=== PATIENT | male | born 1995 ===

== ENCOUNTER 2021-03-02 09:45 | Emergency (ER) | payer MEDICAID, SELFPAY ==
--- NOTE | ~2021-03-02 | XR_ITS ---
EXAMINATION: Right hand and left foot CLINICAL INFORMATION: Punched refrigerator. Question foreign body glass within the left foot. COMPARISON: None TECHNIQUE: Three-view left foot and 3 view right hand FINDINGS: There is no evidence of acute fracture or dislocation of the right hand. Soft tissue swelling is noted about the dorsum of the metacarpals as well as about the fifth metacarpal phalangeal joint. Joint spaces are maintained. 3 views of the left foot do not demonstrate any evidence of acute fracture or dislocation. Joint spaces maintained. There is soft tissue swelling seen about the fifth metatarsophalangeal joint with no definite radiopaque foreign body identified. XR/XR foot LT 2V IMPRESSION: Soft tissue swelling about the right hand and left foot without acute fracture or dislocation or radiopaque foreign body.
--- NOTE | ~2021-03-02 | XR_ITS ---
EXAMINATION: Right hand and left foot CLINICAL INFORMATION: Punched refrigerator. Question foreign body glass within the left foot. COMPARISON: None TECHNIQUE: Three-view left foot and 3 view right hand FINDINGS: There is no evidence of acute fracture or dislocation of the right hand. Soft tissue swelling is noted about the dorsum of the metacarpals as well as about the fifth metacarpal phalangeal joint. Joint spaces are maintained. 3 views of the left foot do not demonstrate any evidence of acute fracture or dislocation. Joint spaces maintained. There is soft tissue swelling seen about the fifth metatarsophalangeal joint with no definite radiopaque foreign body identified. XR/XR hand RT 2V IMPRESSION: Soft tissue swelling about the right hand and left foot without acute fracture or dislocation or radiopaque foreign body.
[2021-03-02 10:21] VITALS: BP 141/57; PULSE 112; RESP 18; TEMP 36.8; O2SAT 97; BMI 31.9
--- NOTE | 2021-03-02 10:59 | ED_ITS ---
HPI - Extremity Problem General Chief complaint: Skin/Abscess/Foreign Body Stated complaint: lt ft lac, swollen rt hand Time Seen by Provider: 03/02/21 10:59 Source: patient Mode of arrival: ambulatory Limitations: no limitations History of Present Illness HPI Narrative: 25-year-old male with no known medical history presents to the emergency department with complaints of left foot pain and right hand pain X12 hours. Patient states last night his walking barefoot, he stepped on what he thinks is class, however he never visualized the glass, or tech any foreign bodies at the area. He states his cough has been bleeding since last night at midnight. He also states that he is having right hand pain status post punching a wall. He states it feels better now and he noticed it a little bit swollen. Patient is unsure of his tetanus status. Patient denies numbness, paresthesias, fevers, chills, nausea, vomiting, chest pain, shortness of breath, abdominal pain MD Complaint: extremity pain and extremity swelling Onset (ago): hour(s) (12) Pain Consistency: constant Location: left (foot) and right (hand ) Quality: constant Radiation: none Relieving factors: nothing Exacerbating factors: nothing Associated symptoms: denies other symptoms Related Data Previous Rx's Medication Instructions Recorded doxycycline hyclate 100 mg capsule 100 mg PO BID 10 Days #20 cap 03/02/21 Allergies Allergy/AdvReac Type Severity Reaction Status Date / Time SEASONAL ALLERGIES Allergy Unknown stuff Uncoded 03/02/21 10:21 nose/eyes irrtation Review of Systems Review of Systems: Constitutional : No Weight loss, No Fever, No Chills, No Fatigue, No Malaise ENT/Mouth : No sore throat, No Rhinorrhea Eyes: No Eye Pain, No Swelling, No Redness Cardiovascular : No Chest Pain, No SOB, No Dyspnea on Exertion, No Orthopnea, No Edema, No Palpitations Respiratory : No Cough, No Sputum, No Wheezing Gastrointestinal : No Nausea, No Vomiting, No Diarrhea, No Constipation, No abdominal Pain, No Hematochezia, No Melena Genitourinary : No Dysuria, No Urinary Frequency, No Hematuria, Musculoskeletal : + joint pain, No Myalgias, + Joint Swelling Skin : No Skin Lesions, No rash, + laceration Neuro : No Weakness, No Numbness, No Dizziness, No Headache All other systems reviewed and are negative PMFSH Past Medical History Attestation statement: The following information was validated with the patient. Source: old records reviewed and nursing notes reviewed Medical History (Updated 03/02/21 @ 11:13 by RAY Mcdonnell) Patient denies medical problems Social History Social History Advance Directives: No Advance Directives Information Provided: No Physical Exam Vital Signs: Vital Signs: Last Vital Signs Temp 98.3 F 03/02/21 10:21 Pulse 112 H 03/02/21 10:21 Resp 18 03/02/21 10:21 BP 141/57 H 03/02/21 10:21 Pulse Ox 97 03/02/21 10:21 Body Mass Index 31.9 Appearance: Alert.? Oriented X3.? No acute distress.? Head: Normocephalic, atraumatic, no step-offs or deformities Eyes: Pupils equal, round and reactive to light.? ENT: Pharynx normal.? Neck: Normal inspection.? Neck supple.? CVS: Normal heart rate and rhythm.? Pulses normal.? Respiratory: No respiratory distress.? Breath sounds normal.? Abdomen: Soft and nontender.? Skin: Skin warm and dry.? Normal skin color.? Normal skin turgor.?+small 2 cm linear laceration to the lateral aspect of the left foot. There is no evident foreign bodies to the laceration. I did a transillumination test at the [facility], and I was unable to visualize any foreign bodi Extremities: No lower extremity edema.? No calf ttp. 5/5 strength to bilateral upper and lower extremities. Dorsalis pedis posterior tibialis pulses 2+ equal and bilateral. Right hand with normal strength, no point tenderness to palpation, no overlying skin changes, slight swelling. Left hand normal Back: No midline tenderness, no C-spine tenderness, full range of motion, no CVA tenderness bilaterally Neuro: Oriented X 3.? No motor deficit.? No sensory deficit. Course Reevaluation(s) Reevaluation #1: Xrays negative. Laceration to left lateral aspect of foot closed with 4-0 nylon non dissolvable sutures. I placed 3 single interrupted sutures to the lateral aspect of the foot. No complications. Patient tolerated procedure well. Patient is safe for discharge home he is gone and his Boostrix shot here today. He has been advised to return to the emergency department in 7-10 days for suture removal return with any signs of infection such as fevers, chills, pain, swelling, discharge from the site of the laceration. Or to return to the emergency department with new or worsening symptoms. He is safe for discharge home with PCP follow-up. Time: 11:47 MDM - Extremity (Nontraumatic) MDM Narrative Medical decision making narrative: 1100 25-year-old male with no known medical history presents to the emergency department with complaints of laceration to the left lateral aspect of his foot status post stepping on a foreign body last night when he was walking around barefoot, and right-sided hand pain status post punching a wall last night. Patient is unsure of his tetanus status. Upon physical examination lungs are clear to auscultation bilaterally, S1-S2 appreciated free of murmurs. Abdomen soft nontender nondistended. Head normocephalic, atraumatic free of step-offs no deformities. Upper and lower extremities 5/5 strength. 2+ pulses equal bilateral. No focal neuro deficits. There is a small 2 cm linear laceration to the left lateral aspect of the foot. There is no evident foreign bodies to the laceration. I did a transillumination test at the bedside, and I was unable to visualize any foreign bodies. Dorsalis pedis posterior tibialis pulses 2+ equal and bilateral. Right hand with normal strength, no point tenderness to palpation, no overlying skin changes, slight swelling. Left hand normal. Plan at this time is to obtain plain films of the hand and foot and suture the laceraiton. Imaging Data Left foot and right hand x-ray: Attestation: I personally reviewed and interpreted this imaging study as follows: Radiologist's impression: XR/XR foot LT 2V IMPRESSION: Soft tissue swelling about the right hand and left foot without acute fracture or dislocation or radiopaque foreign body.? XR/XR hand RT 2V IMPRESSION: Soft tissue swelling about the right hand and left foot without acute fracture or dislocation or radiopaque foreign body.? Procedures Laceration Laceration 1: Site: lower extremity (left foot ) Side (If applicable): left Size (cm): 2 Description: linear Depth: simple, single layer Local Anesthetic: lidocaine 1% Amount of anesthesia used (mL): 3 Pre-repair: wound explored, irrigated extensively and deep structures intact Skin layer closed with: nylon Size (cm): 4-0 Number of sutures: 3 Technique: simple, interrupted Critical Care Time Critical Care Time Critical Care Time: No Discharge Plan Discharge Clinical Impression: Laceration of foot, left Patient Disposition: Home, Self-Care Instructions: Laceration (ED) Additional Instructions: Take your medications as prescribed. If you were prescribed antibiotics today, it is important that you take your medication to their entirety, do not skip any doses, do not finish them early. Follow-up with your primary care provider this week. Return to the emergency department, or get your sutures removed somewhere else in 7-10 days. Return to the emergency department with new or worsening symptoms. In case of emergency call 911 Prescriptions: New doxycycline hyclate 100 mg capsule 100 mg PO BID 10 Days Qty: 20 RF: 0 Referrals: Physician,None [Primary Care Provider] - 2 days Stand Alone Forms: Work/School Release
[2021-03-02] MEDS: Lidocaine HCl 1 % 20 ML VIAL 5 ML SUBCUT (11:26)
[2021-03-02] MEDS: Diphth,Pertus(ACell),Tet Adult 0.5 ML SYRINGE IM (11:27)
== END 2021-03-02 12:06 | disposition home or self-care (01) ==
PROVIDERS: Emergency Provider Emergency Medicine
DX: S91.312A Laceration without foreign body, left foot, initial encounter (principal); W26.9XXA Contact with unspecified sharp object(s), initial encounter; M79.672 Pain in left foot; M79.641 Pain in right hand; Y93.9 Activity, unspecified; Y92.9 Unspecified place or not applicable; Y99.9 Unspecified external cause status
CPT/HCPCS: 12001; 73120; 73620; 90471; 90715; 99283; 99284

== ENCOUNTER 2021-10-30 13:55 | Emergency (ER) | payer MEDICAID, SELFPAY ==
[2021-10-30] MEDS: EPINEPHrine 1 MG/ML VIAL 0.3 MG IM (14:04)
[2021-10-30] MEDS: methylPREDNISolone Sod Succ 125 MG/2 ML VIAL IVPUSH (14:05)
--- NOTE | 2021-10-30 14:05 | ED.ALLEREA ---
HPI - Allergic Reaction General Chief complaint: Allergic Reaction Stated complaint: Allergic reaction Time Seen by Provider: 10/30/21 13:58 Source: patient Mode of arrival: ambulatory Limitations: no limitations History of Present Illness HPI narrative: Patient presents emergency department for evaluation after a bee sting to his right 5th digit. Bee sting reportedly for 40 minutes prior to arrival to the emergency department, about 20 minutes after sting, he had significant stomach upset, he was profusely sweating, felt very cold, and felt as though his throat was constricting, 5 minutes later he reports taking a dose of Children's Benadryl as his father is also allergic to bees. Patient reports that he was stoma is seen years ago on his left hand, and he felt a slight throat closing sensation that self-resolved. Denies headache, vision changes, chest pain, palpitations, shortness of breath difficulty breathing nausea vomiting, abdominal pain. Denies any other known allergies. Related Data Previous Rx's Medication Instructions Recorded doxycycline hyclate 100 mg capsule 100 mg PO BID 10 days #20 caps 03/02/21 epinephrine 0.3 mg/0.3 mL 0.3 mg (0.3 mL) IM Q4H PRN 10/30/21 injection, auto-injector (EpiPen anaphylaxis #2 ea 2-Sameer) Allergies Allergy/AdvReac Type Severity Reaction Status Date / Time bee pollen [bee stings] Allergy Anaphylaxis Verified 10/30/21 14:23 SEASONAL ALLERGIES Allergy Unknown stuff Uncoded 03/02/21 10:21 nose/eyes irrtation Review of Systems Review of Systems: Constitutional : No Fever, No Chills ENT/Mouth : positive oral swelling, No Hoarseness, No Swallowing Difficulty Eyes: No Eye Pain, No Swelling, positive Redness Cardiovascular : No Chest Pain, No SOB Respiratory : No Cough, No Sputum, No Wheezing, No Smoke Exposure, No Dyspnea Gastrointestinal : No Nausea, No Vomiting, positive Diarrhea, No abdominal Pain Genitourinary : No Dysuria, No Urinary Frequency, No Hematuria Musculoskeletal : No joint pain, No Myalgias, No Joint Swelling Skin : No Skin Lesions, no rash Neuro : No Weakness, No Numbness, No Headache Psych : No Anxiety/Panic, No Depression Heme/Lymph: No Bruising, No Lymphadenopathy Endocrine : No Polyuria, No Polydipsia Yes all other systems are reviewed and are negative [facility] Past Medical History Attestation statement: The following information was validated with the patient. Source: old records reviewed Medical History Patient denies medical problems Social History Social History Advance Directives: No Advance Directives Information Provided: Yes Physical Exam ED Vital Signs: Vital Signs - 24 hr 10/30/21 14:22 10/30/21 15:19 Temperature 97.6 F Pulse Rate 92 100 Respiratory Rate 20 18 Blood Pressure 132/68 125/68 Pulse Oximetry 94 99 Oxygen Delivery Method Room Air Nasal Cannula Oxygen Flow Rate 2 BMI result Body Mass Index 28.1 Vital signs have been reviewed as normal and appeared to be correct. Blood pressure normal.? Heart rate normal.? Respiration rate normal. Temperature normal.? Oxygen saturation normal. Appearance: Alert.?Oriented to person, place and time. No acute distress.?Normal affect. Eyes: Pupils equal, round and reactive to light.? Sclera injected, mild orbital erythema, no swelling ENT: Pharynx mildly erythematous, no pharyngeal edema, no adenopathy. No swelling of the lips?? Neck: Normal inspection.? Neck supple.?? CVS: Heart sounds normal. Normal heart rate and rhythm.? Pulses normal.?? Respiratory: No respiratory distress.? Lung sounds clear to auscultation bilaterally?? Abdomen: Soft and non-tender. Normoactive bowel sounds. ? Skin: Skin warm and moist.? Skin appears slightly pale.? Extremities: No lower extremity edema.? Neuro: Moves all extremities spontaneously. Sensation intact bilaterally. CN II-XII intact. No focal neuro deficits. Ambulates with normal steady gait. Course Course Course Narrative: Patient is a 25-year-old male with no significant past medical history presents emergency department for evaluation after the bee sting with allergic reaction. Patient brought right from triage Assessment emergency department. Patient placed on supplemental oxygen, will receive epinephrine 0.3 mg IM, normal saline 1 L IV, Benadryl 25 mg IV, famotidine 20 mg IV, Solu-Medrol 125 mg IV. Patient will need to be continuously monitored in the emergency department. Disposition pending results. Reevaluation(s) Reevaluation #1: Discussed with patient epinephrine autoinjector, avoidance of allergen, indications for use, appropriate way to administer, signs/symptoms of allergic reaction, and immediate presentation to the emergency department after administration of epinephrine. Patient provided with a prescription for epinephrine autoinjector. Patient feels much improved at this time. Has been to our since he received medications. Lung sounds are clear bilaterally, respiratory effort is normal. No angioedema, no pharyngeal edema, no stomach upset no rash/ hives. Discussed worrisome signs and symptoms that would need to return back to the emergency department for. Advised outpatient follow up with primary care provider as needed. Time: 16:09 [facility] - Allergic Reaction Medical Records Attestation: I reviewed the patient's medical records. Discharge Plan Discharge Clinical Impression: Allergic reaction Patient Disposition: Home, Self-Care Instructions: Epinephrine (By injection), General Allergic Reaction (ED) Additional Instructions: You were evaluated in the emergency department for an allergic reaction after being stung by a bee earlier today. You were monitored in the emergency department, and discharged home after receiving medications and once you were feeling well. You have been given a new prescription for an EpiPen, discussed appropriate usage of this, indications for its usage, and presenting to emergency department for evaluation after eating to use this medication. Please follow-up with your primary care provider as needed. Feel free to return to the emergency department at any time for any new or worsening symptoms or concerns. Prescriptions: New epinephrine [EpiPen 2-Sameer] 0.3 mg/0.3 mL auto-injector 0.3 mg IM Q4H PRN (Reason: anaphylaxis) Qty: 2 0RF No Action doxycycline hyclate 100 mg capsule 100 mg PO BID 10 Days Qty: 20 0RF Interventions: ED Discharge Assessment Last Done: 10/30/21 16:22 Discharge Date/Time: 10/30/21 16:26
[2021-10-30] MEDS: diphenhydrAMINE HCL 50 MG/ML VIAL 25 MG IVPUSH (14:06)
[2021-10-30] MEDS: 0.9 % Sodium Chloride 1,000 ML 999 ML IV (14:06)
[2021-10-30] MEDS: Famotidine/PF 20 MG/2 ML VIAL IVPUSH (14:06)
[2021-10-30 14:22] VITALS: BP 132/68; PULSE 92; RESP 20; TEMP 36.4; O2SAT 94; BMI 28.1
[2021-10-30 15:19] VITALS: BP 125/68; PULSE 100; RESP 18; O2SAT 99
== END 2021-10-30 16:26 | disposition home or self-care (01) ==
PROVIDERS: Emergency Provider Emergency Medicine
DX: T63.441A Toxic effect of venom of bees, accidental (unintentional), initial encounter (principal); R22.0 Localized swelling, mass and lump, head; R10.9 Unspecified abdominal pain; R68.83 Chills (without fever); Y92.9 Unspecified place or not applicable
CPT/HCPCS: 96361; 96372; 96374; 96375; 99283; 99284; J0171; J1200; J2930

== ENCOUNTER 2022-03-08 12:58 | Emergency (ER) | payer MEDICAID, SELFPAY ==
--- NOTE | 2022-03-08 14:00 | ED_ITS ---
HPI - Skin/Abscess/Foreign Bdy General Chief complaint: Eye Problems <Sally Goncalves CNP - Last Filed: 03/08/22 14:08> Stated complaint: laceration above eye <Sally Goncalves CNP - Last Filed: 03/08/22 14:08> Time Seen by Provider: 03/08/22 14:33 <Sally Goncalves CNP - Last Filed: 03/08/22 14:08> Source: patient <Brenna Ibarra NP - Last Filed: 03/08/22 17:24> Mode of arrival: ambulatory <Brenna Ibarra NP - Last Filed: 03/08/22 17:24> Limitations: no limitations <Brenna Ibarra NP - Last Filed: 03/08/22 17:24> History of Present Illness HPI narrative: Kendall is a 26 yo male with no PMHx who presents to the emergency depar tment with a CC of left eye pain and irritation that started yesterday. He says that a few years ago, he received an initial injury in the left eye from a spark that flew into his eye from cleaning a lawnmower blade. He says it eventually healed and he never got it checked out. He then scratched his left eye a few months ago and says he had severe eye pain and couldn't open his eye at the time,but did not seek treatment, and it healed on its own. The pain in his left eye started again yesterday, and he denies any injury or new trauma to the site. It is extremely painful to open the eye and he thinks it is swollen. He has not tried anything to help with the pain and has not applied any OTC eye drops. He also notes that he has a decrease in vision in his left eye and is concerned that the pain appears to have come on very randomly. He denies abnormal discharge, blood, or itchiness. <Brenna Ibarra NP - Last Filed: 03/08/22 17:24> Severity: severe <KEISHA Jack Last Filed: 03/08/22 17:24> Severity scale (1-10): 10 <Brenna Ibarra NP - Last Filed: 03/08/22 17:24> Quality: sharp <Brenna Ibarra NP - Last Filed: 03/08/22 17:24> Pain Consistency: constant <Brenna Ibarra NP - Last Filed: 03/08/22 17:24> Relieving factors: other (keeping eye closed) <Brenna Ibarra NP - Last Filed: 03/08/22 17:24> Exacerbating factors: movement <Brenna Ibarra NP - Last Filed: 03/08/22 17:24> Context: none <Brenna Ibarra NP - Last Filed: 03/08/22 17:24> Associated symptoms: denies other symptoms <Brenna Ibarra NP - Last Filed: 03/08/22 17:24> Treatments prior to arrival: none <Brenna Ibarra NP - Last Filed: 03/08/22 17:24> Related Data Home medications: Previous Rx's Medication Instructions Recorded doxycycline hyclate 100 mg capsule 100 mg PO BID 10 days #20 caps 03/02/21 epinephrine 0.3 mg/0.3 mL 0.3 mg (0.3 mL) IM Q4H PRN 10/30/21 injection, auto-injector (EpiPen anaphylaxis #2 ea 2-Sameer) erythromycin 5 mg/gram (0.5 %) eye 1 appl ophthalmic (eye) BID #3.5 03/08/22 ointment grams ibuprofen 600 mg tablet 600 mg PO Q6H PRN pain #30 tabs 03/08/22 <Sally Goncalves CNP - Last Filed: 03/08/22 14:08> Allergies/Adverse reactions: Allergies Allergy/AdvReac Type Severity Reaction Status Date / Time bee pollen [bee stings] Allergy Anaphylaxis Verified 10/30/21 14:23 SEASONAL ALLERGIES Allergy Unknown stuff Uncoded 03/02/21 10:21 nose/eyes irrtation <Sally Goncalves CNP - Last Filed: 03/08/22 14:08> Review of Systems Review of Systems: Yes all other systems are reviewed and are negative <Brenna Ibarra NP - Last Filed: 03/08/22 17:24> Constitutional: Constitutional: Reports no additional constitutional complaints, Denies body ache(s), Denies chills, Denies fever(s), Denies heada sherry(s) and Denies weakness <Brenna Ibarra NP - Last Filed: 03/08/22 17:24> Eyes: Eyes: Reports change in vision (left eye), Denies eye discharge, Reports irritation, Reports eye pain, Denies requires corrective lenses and Reports photophobia <Brenna Ibarra NP - Last Filed: 03/08/22 17:24> ENT: Reports system reviewed and no additional complaints, except as documented, Denies dizziness, Denies headache(s), Denies nasal congestion, Denies nasal discharge and Denies neck pain <Brenna Ibarra NP - Last Filed: 03/08/22 17:24> Cardiovascular: Cardiovascular: Reports no additional cardiovascular complaints, Denies chest pain, Denies leg edema and Denies dyspnea <Brenna Ibarra NP - Last Filed: 03/08/22 17:24> Respiratory: Respiratory: Reports no additional respiratory complaints, Denies cough and Denies dyspnea <Brenna Ibarra NP - Last Filed: 03/08/22 17:24> Gastrointestinal: Gastrointestinal: Reports no additional gastrointestinal complaints, Denies abdominal pain, Denies diarrhea, Denies nausea and Denies vomiting <Brenna Ibarra NP - Last Filed: 03/08/22 17:24> Genitourinary: Genitourinary: Denies urinary incontinence <Brenna Ibarra NP - Last Filed: 03/08/22 17:24> Musculoskeletal: Musculoskeletal: Reports no additional musculoskeletal complaints, Denies back pain, Denies arthralgias, Denies joint swelling, Denies neck pain, Denies numbness and Denies tingling <Brenna Ibarra NP - Last Filed: 03/08/22 17:24> Integumentary/Breasts: Skin/Breast: Reports system reviewed and no additional complaints, except as docu and Denies rash <Brenna Ibarra NP - Last Filed: 03/08/22 17:24> Neurologic: Reports system reviewed and no additional complaints, except as documented, Denies Abnormal speech present, Denies dizziness, Denies headache(s), Denies numbness, Denies tingling and Denies weakness <Brenna Ibarra NP - Last Filed: 03/08/22 17:24> [facility] Past Medical History Attestation statement: The following information was validated with the patient. <Brenna Ibarra NP - Last Filed: 03/08/22 17:24> [facility] Narrative: PMHx: none SHx:none <Brenna Ibarra NP - Last Filed: 03/08/22 17:24> Source: old records reviewed and nursing notes reviewed <Brenna Ibarra NP - Last Filed: 03/08/22 17:24> Medical History: Medical History Patient denies medical problems <Sally Goncalves CNP - Last Filed: 03/08/22 14:08> Social History Social History: Social History Advance Directives: No Advance Directives Information Provided: Yes <Sally Goncalves CNP - Last Filed: 03/08/22 14:08> Physical Exam Vital Signs: Vital Signs: Last Vital Signs Temp 97.4 F 03/08/22 14:02 Pulse 95 03/08/22 14:02 Resp 20 03/08/22 14:02 BP 142/83 H 03/08/22 14:02 Pulse Ox 96 03/08/22 14:02 BMI result Body Mass Index 36.0 <Sally Goncalves CNP - Last Filed: 03/08/22 14:08> Vital Signs: Last Vital Signs Temp 97.4 F 03/08/22 14:02 Pulse 95 03/08/22 14:02 Resp 20 03/08/22 14:02 BP 142/83 H 03/08/22 14:02 Pulse Ox 96 03/08/22 14:02 BMI result Body Mass Index 36.0 <Brenna Ibarra NP - Last Filed: 03/08/22 17:24> Const: General: cooperative, healthy appearing, comfortable and no acute distress <Brenna Ibarra NP - Last Filed: 03/08/22 17:24> Orientation/consciousness: patient oriented x3 <Brenna Ibarra NP - Last Filed: 03/08/22 17:24> Limitations: no limitations <Brenna Ibarra NP - Last Filed: 03/08/22 17:24> HEENT: Head: Yes normal to inspection <Brenna Ibarra NP - Last Filed: 03/08/22 17:24> Ears: hearing grossly normal bilaterally and TM's normal bilaterally <Brenna Ibarra NP - Last Filed: 03/08/22 17:24> General nose exam: Normal external nose present <Brenna Ibarra NP - Last Filed: 03/08/22 17:24> Face and sinus: Yes normal facial exam <Brenna Ibarra NP - Last Filed: 03/08/22 17:24> Mouth: Normal oral and palatal mucosa present <Brenna Ibarra NP - Last Fi led: 03/08/22 17:24> Throat: Yes posterior oropharynx normal, Yes tonsils normal and Yes uvula midline <Brenna Ibarra NP - Last Filed: 03/08/22 17:24> Eyes: Other: IOP right 17 IOP left 12 See visual acuity documented by nursing <Brenna Ibarra NP - Last Filed: 03/08/22 17:24> General: appearance normal, both eyes and all related structures <Brenna Ibarra NP - Last Filed: 03/08/22 17:24> Alignment and Position: alignment normal <Brenna Ibarra NP - Last Filed: 03/08/22 17:24> Periorbital: periorbital findings normal <Brenna Ibarra NP - Last Filed: 03/08/22 17:24> Eyelids: Yes eyelids normal <Brenna Ibarra NP - Last Filed: 03/08/22 17:24> Conjunctivae: conjunctival abnormal left conjunctival injection diffuse <Brenna Ibarra NP - Last Filed: 03/08/22 17:24> Sclerae: scleral abnormal left (+swelling ) scleral injection diffuse <Brenna Ibarra NP - Last Filed: 03/08/22 17:24> Corneas: corneas abnormal (At the 5 o clock position there a circular abrasion with no FB) and fluorescein used <Brenna Ibarra NP - Last Filed: 03/08/22 17:24> Pupils: Equal, round and reactive pupils present <Brenna Ibarra PIN FEATHER MACHINE OPERATOR - Last Filed: 03/08/22 17:24> EOM: EOMs intact bilaterally <Brenna Ibarra PIN FEATHER MACHINE OPERATOR - Last Filed: 03/08/22 17:24> Direct Ophthalmoscopy: normal light reflex and photophobia <Brenna Ibarra NP - Last Filed: 03/08/22 17:24> Neck: Neck: Yes normal visual inspection <Brenna Ibarra NP - Last Andrea ed: 03/08/22 17:24> Chest: Chest palpation & inspection: normal inspection of the chest <Brenna Ibarra NP - Last Filed: 03/08/22 17:24> Resp: Effort & Inspection: normal respiratory effort <Brenna Ibarra PIN FEATHER MACHINE OPERATOR - Last Filed: 03/08/22 17:24> Auscultation: clear to auscultation bilaterally <Brenna Ibarra NP - Last Filed: 03/08/22 17:24> Cardio: Rate: regular rate <Brenna Ibarra NP - Last Filed: 03/08/22 17:24> Rhythm: regular rhythm <Brenna Ibarra NP - Last Filed: 03/08/22 17:24> Peripheral pulses: Peripheral pulses 2+ throughout <Brenna Ibarra PIN FEATHER MACHINE OPERATOR - Last Filed: 03/08/22 17:24> GI: Inspection: Yes normal to inspection <Brenna Ibarra NP - Last Filed: 03/08/22 17:24> Palpation (GI): Soft to palpation and nontender <Brenna Ibarra PIN FEATHER MACHINE OPERATOR - Last Filed: 03/08/22 17:24> Auscultation: normal bowel sounds <Brenna Ibarra NP - Last Filed: 03/08/22 17:24> Back/Spine/Pelvis: Thoracic/Lumbar Spine: thoracic and lumbar spine normal to inspection <Brenna Ibarra PIN FEATHER MACHINE OPERATOR - Last Filed: 03/08/22 17:24> Skin: General skin exam: no rashes or lesions noted <Brenna Ibarra PIN FEATHER MACHINE OPERATOR - Last Filed: 03/08/22 17:24> Neuro: General: patient oriented x3, no focal motor deficits and normal sensation to monofilament <Brenna Ibarra PIN FEATHER MACHINE OPERATOR - Last Filed: 03/08/22 17:24> Cranial nerves: Yes Equal, round and reactive pupils present <Brenna Ibarra PIN FEATHER MACHINE OPERATOR - Last Filed: 03/08/22 17:24> Cognition (Neuro): normal cognition <Brenna Ibarra PIN FEATHER MACHINE OPERATOR - Last Filed: 03/08/22 17:24> Speech: No Abnormal speech present <Brenna Ibarra PIN FEATHER MACHINE OPERATOR - Last Filed: 03/08/22 17:24> Gait exam (Neuro): Normal gait present <Brenna Ibarra NP - Last Filed: 03/08/22 17:24> Motor exam (neuro): 5/5 motor strength present throughout <Brenna Ibarra PIN FEATHER MACHINE OPERATOR - Last Filed: 03/08/22 17:24> Extrem: General: Yes normal to inspection <Brenna Ibarra NP - Last File d: 03/08/22 17:24> Course Course Course Narrative: RME: Patient is a 26-year-old male presents emergency department for evaluation of left eye pain, reporting concern for foreign body versus abrasion. States a few months ago, scratched the eye accidentally with finger, wrapped it and sought no evaluation. 2 days ago he reports awaking with eye feeling irriated, scratchy throughout the day without any known injury or foreign body. Pain worsening, reporting blurry vision. PE: Sclera injected, tearing, no visible foreign body. EOMi, however pain noted most with upward gaze Plan: Will need visual acuity, fluorescein examination, and IOP. <Sally Goncalves, TOBACCO BALER - Last Filed: 03/08/22 14:08> RME: Patient is a 26-year-old male presents emergency department for evaluation of left eye pain, reporting concern for foreign body versus abrasion. States a few months ago, scratched the eye accidentally with finger, wrapped it and sought no evaluation. 2 days ago he reports awaking with eye feeling irritated, scratchy throughout the day without any known injury or foreign body. Pain worsening, reporting blurry vision. PE: Sclera injected, tearing, no visible foreign body. EOMi, however pain noted most with upward gaze. Woodlamp with flourocsein performed, corneal abrasion noted. NO FB. Pressures normal Plan: given topical antibiotic, recommend f/u with ophthalmology <Brenna Ibarra NP - Last Filed: 03/08/22 17:24> Medications Administered Discontinued Medications Generic Name Dose Route Start Last Admin Trade Name Freq PRN Reason Stop Dose Admin Fluorescein Sodium 1 strip 03/08/22 14:40 03/08/22 16:28 Fluorescein Sodium Strip EYE-BOTH 03/08/22 14:41 1 strip ONCE ONE Administration Tetracaine HCl 1 drop 03/08/22 14:40 03/08/22 16:28 Tetracaine Hcl/Pf 0.5% Oph Mary 4 Ml Drops EYE-BOTH 03/08/22 14:41 1 drop ONCE ONE Administration <Sally Goncalves, RYLAN - Last Filed: 03/08/22 14:08> Medications Administered Discontinued Medications Generic Name Dose Route Start Last Admin Trade Name Freq PRN Reason Stop Dose Admin Fluorescein Sodium 1 strip 03/08/22 14:40 03/08/22 16:28 Fluorescein Sodium Strip EYE-BOTH 03/08/22 14:41 1 strip ONCE ONE Administration Tetracaine HCl 1 drop 03/08/22 14:40 03/08/22 16:28 Tetracaine Hcl/Pf 0.5% Oph Mary 4 Ml Drops EYE-BOTH 03/08/22 14:41 1 drop ONCE ONE Administration <Brenna Ibarra NP - Last Filed: 03/08/22 17:24> MDM - Skin/Abscess/Foreign Bdy MDM Narrative Medical decision making narrative: Based on PE with wood's lamp and flourescien stain, corneal abrasion noted on left eye. Provided topical antibiotic and recommended f/u with opthamolagist. Considered acute angle glaucoma, corneal FB, subconjunctival hemorrhage, conjunctivitis, optic neuritis, orbital cellulitis, globe rupture <Brenna Ibarra NP - Last Filed: 03/08/22 17:24> Medical Records Attestation: I reviewed the patient's medical records. <Brenna Ibarra NP - Last Filed: 03/08/22 17:24> Lab Data Attestation: I reviewed the patient's lab results. <Brenna Ibarra NP - Last Filed: 03/08/22 17:24> Discharge Plan Discharge Clinical Impression: Corneal abrasion <Sally Goncalves CNP - Last Filed: 03/08/22 14:08> Patient Disposition: Home, Self-Care <Sally Goncalves CNP - Last Filed: 03/08/22 14:08> Instructions: Corneal Abrasion (ED) <Sally Goncalves CNP - Last Filed: 03/08/22 14:08> Additional Instructions: cool compresses motrin or tylenol for pain as needed <Sally Goncalves CNP - Last Filed: 03/08/22 14:08> Prescriptions: New erythromycin 5 mg/gram (0.5 %) ointment 1 appl ophthalmic (eye) BID Qty: 3.5 0RF ibuprofen 600 mg tablet 600 mg PO Q6H PRN (Reason: pain) Qty: 30 0RF No Action doxycycline hyclate 100 mg capsule 100 mg PO BID 10 Days Qty: 20 0RF epinephrine [EpiPen 2-Sameer] 0.3 mg/0.3 mL auto-injector 0.3 mg IM Q4H PRN (Reason: anaphylaxis) Qty: 2 0RF <Sally Goncalves CNP - Last Filed: 03/08/22 14:08> Referrals: Gulshan Jean Baptiste [Physician] - 1 week <Sally Goncalves CNP - Last Filed: 03/08/22 14:08> Interventions: ED Discharge Assessment Last Done: 03/08/22 16:28 <Sally Goncalves CNP - Last Filed: 03/08/22 14:08> Discharge Date/Time: 03/08/22 16:29 <Sally Goncalves CNP - Last Filed: 03/08/22 14:08>
[2022-03-08 14:02] VITALS: BP 142/83; PULSE 95; RESP 20; TEMP 36.3; O2SAT 96; BMI 36.0
[2022-03-08] MEDS: Tetracaine HCl/PF 0.5% Oph Sol 4 ML DROPS 1 DROP EYE-BOTH (16:28)
[2022-03-08] MEDS: Fluorescein Sodium STRIP 1 STRIP EYE-BOTH (16:28)
== END 2022-03-08 16:29 | disposition home or self-care (01) ==
PROVIDERS: Emergency Provider Emergency Medicine Emergency Medical Services
DX: S05.02XA Injury of conjunctiva and corneal abrasion without foreign body, left eye, initial encounter (principal); X58.XXXA Exposure to other specified factors, initial encounter; Y93.89 Activity, other specified; Y92.9 Unspecified place or not applicable; Y99.9 Unspecified external cause status
CPT/HCPCS: 99282; 99283

== ENCOUNTER 2022-04-27 17:35 | Emergency (ER) | payer MEDICAID, SELFPAY ==
[2022-04-27 17:39] VITALS: BP 123/78; PULSE 70; RESP 18; TEMP 36.3; O2SAT 96; BMI 36.5
--- NOTE | 2022-04-27 17:56 | ED.GENADULT ---
HPI - General Adult General Chief complaint: General Medical Stated complaint: object in eye? Time Seen by Provider: 04/27/22 17:55 Source: patient Mode of arrival: ambulatory Limitations: no limitations History of Present Illness HPI narrative: Patient is a 26 year old assigned male at with no reported medical history presenting to the emergency department today with left eye pain. Patient states that 3 hours ago he began to have left eye pain that would not got away. Patient states that something similar happened in February but he didn't follow up with an refund specialist. Patient states that this has actually been intermittent since 2016. Patient denies any dizziness, lightheadedness, abdominal pain, nausea, vomiting, fever, chills, blurry vision, double vision, loss of vision, chest pain, difficulty breathing, shortness of breath, back pain, night sweats, pain with urination, increased urinary frequency, increased urinary urgency, blood in his urine or stool, syncope or a near syncopal episode, recent trauma or falls, bowel incontinence, bladder incontinence, bowel retention, bladder retention, or any other complaints at this time. Onset (ago): hour(s) Location: eyes (left) Radiation: non-radiation Severity: mild Severity scale (1-10): 3 Quality: aching Pain Consistency: constant Relieving factors: none Exacerbating factors: none Associated symptoms: denies other symptoms Treatments prior to arrival: none Related Data Previous Rx's Medication Instructions Recorded doxycycline hyclate 100 mg capsule 100 mg PO BID 10 days #20 caps 03/02/21 epinephrine 0.3 mg/0.3 mL 0.3 mg (0.3 mL) IM Q4H PRN 10/30/21 injection, auto-injector (EpiPen anaphylaxis #2 ea 2-Sameer) erythromycin 5 mg/gram (0.5 %) eye 1 appl ophthalmic (eye) BID #3.5 03/08/22 ointment grams ibuprofen 600 mg tablet 600 mg PO Q6H PRN pain #30 tabs 03/08/22 erythromycin 5 mg/gram (0.5 %) eye 0.5 inch ophthalmic (eye) Q4H #3.5 04/27/22 ointment grams Allergies Allergy/AdvReac Type Severity Reaction Status Date / Time bee pollen [bee stings] Allergy Anaphylaxis Verified 10/30/21 14:23 SEASONAL ALLERGIES Allergy Unknown stuff Uncoded 03/02/21 10:21 nose/eyes irrtation Review of Systems Constitutional: Constitutional: Reports no additional constitutional complaints, Denies chills, Denies fever(s) and Denies night sweats Eyes: Eyes: Reports no additional eye complaints, Denies blurry vision, Denies change in vision, Denies diplopia, Denies eye discharge, Denies loss of vision and Reports eye pain (left) ENT: Denies dizziness Cardiovascular: Cardiovascular: Reports no additional cardiovascular complaints, Denies chest pain, Denies lightheadedness, Denies Loss of Consciousness and Denies dyspnea Respiratory: Respiratory: Reports no additional respiratory complaints and Denies dyspnea Gastrointestinal: Gastrointestinal: Reports no additional gastrointestinal complaints, Denies abdominal pain, Denies melena, Denies hematochezia, Denies change in bowel habits and Denies change in stool character Genitourinary: Genitourinary: Reports no additional male genitourinary complaints, Denies hematuria, Denies oliguria, Denies difficulty urinating, Denies dysuria, Denies urinary frequency, Denies urinary hesitancy, Denies urinary incontinence and Denies urinary urgency Musculoskeletal: Musculoskeletal: Reports no additional musculoskeletal complaints, Denies numbness and Denies tingling Neurologic: Denies dizziness, Denies loss of vision, Denies numbness and Denies tingling Psychiatric: Psychiatric: Reports no additional psychiatric complaints Endocrine: Endocrine: Reports no additional endocrine complaints Hematologic/Lymphatic: Hematologic/Lymphatic: Reports no additional hematologic/lymphatic complaints Allergic/Immunologic: Allergic/Immunologic: Reports no additional allergic/immunologic complaints PMFSH Past Medical History Attestation statement: The following information was validated with the patient. Source: old records reviewed and nursing notes reviewed Medical History Patient denies medical problems Social History Social History Advance Directives: No Advance Directives Information Provided: No Physical Exam ED Vital Signs: Vital Signs - 24 hr 04/27/22 17:39 Temperature 97.3 F Pulse Rate 70 Respiratory Rate 18 Blood Pressure 123/78 Pulse Oximetry 96 Oxygen Delivery Method Room Air BMI result Body Mass Index 36.5 Const General: cooperative, no acute distress, alert and awake Nutritional Appearance: well nourished Orientation/consciousness: patient oriented x3 Limitations: no limitations HENMT Head: Yes normal to inspection and Yes atraumatic Ears: hearing grossly normal bilaterally and external ears normal General nose exam: Normal external nose present, no nasal discharge noted and no epistaxis Face and sinus: Yes normal facial exam, No abrasion and No laceration Mouth: Normal oral and palatal mucosa present, no drooling and no muffled voice Eyes General: appearance normal, both eyes and all related structures Periorbital: periorbital findings normal Eyelids: Yes other (minimal erythema to the left top lid) Conjunctivae: conjunctivae normal Corneas: corneas abnormal on the left abrasion Pupils: Equal, round and reactive pupils present EOM: EOMs intact bilaterally Neck Neck: Yes normal visual inspection, Yes full ROM and Yes no lymphadenopathy Chest Chest palpation & inspection: normal inspection of the chest Resp Effort & Inspection: normal respiratory effort and able to speak in complete sentences Auscultation: clear to auscultation bilaterally Cardio Rate: regular rate Rhythm: regular rhythm GI Inspection: Yes normal to inspection Neuro General: patient oriented x3 and moves all extremities Cranial nerves: Yes Equal, round and reactive pupils present Cognition (Neuro): normal cognition Motor exam (neuro): 5/5 motor strength present throughout Sensory Exam: Normal double simultaneous stimulation for sensation Coordination: [id number] test normal Extrem General: Yes normal to inspection, Yes full ROM and Yes capillary refill normal Psych Appearance: grossly normal Mental Status: mental status grossly normal Affect: normal affect Attitude: cooperative Thought process: Normal thought process present Thought content: Normal thought content present Insight: Good insight present (Psych) Medical Decision Making Medical Decision Making MDM Narrative: Patient is a 26 year old assigned male at with no reported medical history presenting to the emergency department today with left eye pain. Patient's physical exam showed minimal erythema to the left upper lid and a small corneal abrasion to the left cornea. I explained my physical exam findings to the patient. I answered all questions asked by the patient. I stressed the importance of the patient taking his medication as prescribed. I stressed the importance of the patient following up with his primary care provider and an refund specialist. I stressed the importance of the patient returning to the emergency department immediately if his symptoms were to worsen or if he were to develop any dizziness, shortness of breath, difficulty breathing, chest pain, blurry vision, loss of vision, nausea, vomiting, abdominal pain, fever, chills, back pain, or any other complaints. Patient verbalized agreement and understanding with this treatment plan and discharge. Differential Diagnosis Differential Diagnoses: The differential diagnosis associated with the presentation includes corneal abrasion, stye Discharge Plan Discharge Clinical Impression: Sty, Abrasion, corneal Patient Disposition: Home, Self-Care Instructions: Stye (ED), Corneal Abrasion (ED) Additional Instructions: Follow up with your primary care provider and an refund specialist. Return to the emergency department immediately if your symptoms worsen or if you develop any dizziness, shortness of breath, difficulty breathing, chest pain, blurry vision, loss of vision, nausea, vomiting, abdominal pain, fever, chills, back pain, or any other complaints. Prescriptions: New erythromycin 5 mg/gram (0.5 %) ointment 0.5 inch ophthalmic (eye) Q4H Qty: 3.5 0RF No Action doxycycline hyclate 100 mg capsule 100 mg PO BID 10 Days Qty: 20 0RF epinephrine [EpiPen 2-Sameer] 0.3 mg/0.3 mL auto-injector 0.3 mg IM Q4H PRN (Reason: anaphylaxis) Qty: 2 0RF erythromycin 5 mg/gram (0.5 %) ointment 1 appl ophthalmic (eye) BID Qty: 3.5 0RF ibuprofen 600 mg tablet 600 mg PO Q6H PRN (Reason: pain) Qty: 30 0RF Referrals: Jose Chapman MD [Primary Care Provider] - Gulshan Jean Baptiste [Physician] - (Call to establish and follow up with an refund specialist. ) Stand Alone Forms: Work/School Release Print Language: Indonesian
[2022-04-27] MEDS: Tetracaine HCl/PF 0.5% Oph Sol 4 ML DROPS 1 DROP EYE-LEFT (18:33)
== END 2022-04-27 18:34 | disposition home or self-care (01) ==
PROVIDERS: Emergency Provider Emergency Medicine; PCP Internal Medicine
DX: H00.014 Hordeolum externum left upper eyelid (principal); S05.02XA Injury of conjunctiva and corneal abrasion without foreign body, left eye, initial encounter; X58.XXXA Exposure to other specified factors, initial encounter; Y93.9 Activity, unspecified; Y92.9 Unspecified place or not applicable; Y99.9 Unspecified external cause status
CPT/HCPCS: 99282; 99283

== ENCOUNTER 2022-06-05 10:50 | Emergency (ER) | payer OTHER, SELFPAY ==
[2022-06-05 11:14] VITALS: BP 132/81; PULSE 80; RESP 16; TEMP 37.3; O2SAT 97; BMI 34.9
--- NOTE | 2022-06-05 11:14 | ED.EYEPROB ---
HPI - Eye Problem General Chief complaint: Eye Problems Stated complaint: swollen L eye Time Seen by Provider: 06/05/22 11:22 Related Data Previous Rx's Medication Instructions Recorded doxycycline hyclate 100 mg capsule 100 mg PO BID 10 days #20 caps 03/02/21 epinephrine 0.3 mg/0.3 mL 0.3 mg (0.3 mL) IM Q4H PRN 10/30/21 injection, auto-injector (EpiPen anaphylaxis #2 ea 2-Sameer) erythromycin 5 mg/gram (0.5 %) eye 1 appl ophthalmic (eye) BID #3.5 03/08/22 ointment grams ibuprofen 600 mg tablet 600 mg PO Q6H PRN pain #30 tabs 03/08/22 erythromycin 5 mg/gram (0.5 %) eye 0.5 inch ophthalmic (eye) Q4H #3.5 04/27/22 ointment grams erythromycin 5 mg/gram (0.5 %) eye 0.5 inch ophthalmic (eye) QID 06/05/22 ointment Bacterial conjunctivitis 7 days #3.5 grams ketorolac 0.5 % eye drops 1 drp ophthalmic (eye) QID Corneal 06/05/22 abrasion 2 weeks #10 mL Allergies Allergy/AdvReac Type Severity Reaction Status Date / Time bee pollen [bee stings] Allergy Anaphylaxis Verified 06/05/22 11:19 SEASONAL ALLERGIES Allergy Unknown stuff Uncoded 06/05/22 11:19 nose/eyes irrtation PMFSH Past Medical History Medical History Patient denies medical problems Social History Social History Advance Directives: No Physical Exam Vital Signs: Vital Signs: Last Vital Signs Temp 99.2 F 06/05/22 11:14 Pulse 80 06/05/22 11:14 Resp 16 06/05/22 11:14 BP 132/81 06/05/22 11:14 Pulse Ox 97 06/05/22 11:14 O2 Del Method 06/05/22 11:14 BMI result Body Mass Index 34.9 Course Course Course Narrative: RME: 26 y/o male presenting for evaluation of bilateral eye dryness/pain, L>R x 2 days. FB sensation over the top left eyelid. 3 days ago had ?sand fly into his left eye. Does not wear contact lenses. Has been using old erythromycin rx without relief. Left eye appears erythematous and watery, will need fluorescein, tetracaine, and visual acuity. Will be seen in [facility]. Medications Administered Discontinued Medications Generic Name Dose Route Start Last Admin Trade Name Freq PRN Reason Stop Dose Admin Erythromycin 1 cm 06/05/22 11:39 06/05/22 11:48 Erythromycin Base 0.5% Oph Oin 1 Gm Tube EYE-LEFT 06/05/22 11:40 1 cm ONCE ONE Administration Fluorescein Sodium 1 strip 06/05/22 11:16 06/05/22 11:38 Fluorescein Sodium Strip EYE-LEFT 06/05/22 11:17 1 strip ONCE ONE Administration Tetracaine HCl 1 drop 06/05/22 11:16 06/05/22 11:38 Tetracaine Hcl/Pf 0.5% Oph Mary 4 Ml Drops EYE-LEFT 06/05/22 11:17 1 drop ONCE ONE Administration Discharge Plan Discharge Clinical Impression: Corneal abrasion, left Patient Disposition: Home, Self-Care Instructions: Corneal Abrasion (ED) Prescriptions: New erythromycin 5 mg/gram (0.5 %) ointment 0.5 inch ophthalmic (eye) QID 7 Days Qty: 3.5 0RF ketorolac 0.5 % drops 1 drp ophthalmic (eye) QID 14 Days Qty: 10 0RF No Action doxycycline hyclate 100 mg capsule 100 mg PO BID 10 Days Qty: 20 0RF epinephrine [EpiPen 2-Sameer] 0.3 mg/0.3 mL auto-injector 0.3 mg IM Q4H PRN (Reason: anaphylaxis) Qty: 2 0RF erythromycin 5 mg/gram (0.5 %) ointment 0.5 inch ophthalmic (eye) Q4H Qty: 3.5 0RF erythromycin 5 mg/gram (0.5 %) ointment 1 appl ophthalmic (eye) BID Qty: 3.5 0RF ibuprofen 600 mg tablet 600 mg PO Q6H PRN (Reason: pain) Qty: 30 0RF Referrals: Gulshan Jean Baptiste [Physician] - (Call to make a follow-up appointment) Stand Alone Forms: Work/School Release Interventions: ED Discharge Assessment Last Done: 06/05/22 11:48 Discharge Date/Time: 06/05/22 11:48
[2022-06-05] MEDS: Tetracaine HCl/PF 0.5% Oph Sol 4 ML DROPS 1 DROP EYE-LEFT (11:38)
[2022-06-05] MEDS: Fluorescein Sodium STRIP 1 STRIP EYE-LEFT (11:38)
--- NOTE | 2022-06-05 11:40 | ED.EYEPROB ---
HPI - Eye Problem General Chief complaint: Eye Problems Stated complaint: swollen L eye Time Seen by Provider: 06/05/22 11:22 Source: patient Mode of arrival: ambulatory Limitations: no limitations History of Present Illness HPI Narrative: 26-year-old male presenting to the ER with complaints of left eye pain/scratchy sensation feeling like he might have a foreign body to his left eye. 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 He does wear protective mason and goggles at work. He is up-to-date on tetanus/received in 2020. He denies any other symptoms complaints or concerns at this time. chief complaint: foreign body Onset (ago): day(s) (2) Onset description: gradual Duration: constant and progressively worsening Location: left eye Eye Symptoms: burning, redness, foreign body sensation, itching and blurry vision Place: home and work Mechanism: other (Possible dust order from home or work) Severity: mild If Pain, Quality: burning Associated symptoms: none Treatments Prior to Arrival: irrigated eye and other (And use some old erythromycin ointment that he had on his last visit when he was seen here) Related Data Patient tetanus UTD: Yes (Received in 2020) Previous Rx's Medication Instructions Recorded doxycycline hyclate 100 mg capsule 100 mg PO BID 10 days #20 caps 03/02/21 epinephrine 0.3 mg/0.3 mL 0.3 mg (0.3 mL) IM Q4H PRN 10/30/21 injection, auto-injector (EpiPen anaphylaxis #2 ea 2-Sameer) erythromycin 5 mg/gram (0.5 %) eye 1 appl ophthalmic (eye) BID #3.5 03/08/22 ointment grams ibuprofen 600 mg tablet 600 mg PO Q6H PRN pain #30 tabs 03/08/22 erythromycin 5 mg/gram (0.5 %) eye 0.5 inch ophthalmic (eye) Q4H #3.5 04/27/22 ointment grams erythromycin 5 mg/gram (0.5 %) eye 0.5 inch ophthalmic (eye) QID 06/05/22 ointment Bacterial conjunctivitis 7 days #3.5 grams ketorolac 0.5 % eye drops 1 drp ophthalmic (eye) QID Corneal 02/22/23 abrasion 2 weeks #10 mL Allergies Allergy/AdvReac Type Severity Reaction Status Date / Time bee pollen [bee stings] Allergy Anaphylaxis Verified 06/05/22 11:19 SEASONAL ALLERGIES Allergy Unknown stuff Uncoded 06/05/22 11:19 nose/eyes irrtation Review of Systems Review of Systems: Constitutional : No fevers, no chills, No changes in activity, No lethargy, No recent prior head injury, No agitation, No increased fussiness ENT/Mouth : No Ear Pain, No Nasal discharge/drainage Eyes: + Vision changes/blurry/decreased vision, + left Eye Pain/redness/itching/foreign body sensation, No Swelling, No Photophobia, no discharge, no drainage, no eyelid edema, no contact lens uses, no recent welding, no bleeding Cardiovascular : No Chest Pain, No SOB Respiratory : No Cough Gastrointestinal : No Nausea, No Vomiting, No abdominal Pain Genitourinary : No Dysuria, No Urinary Frequency, No Urinary Incontinence, No Urgency, No Flank Pain Musculoskeletal : No joint pain, No neck stiffness, No back pain/injury Skin : No lacerations Neuro : No unsteady gait, No Paresthesias, No Loss of Consciousness, No altered mental status, No dizziness, No Headache Denies past medical history of HIV, recent trauma, coagulopathy, recent spinal/ epidural procedure, new medication, URI symptoms, close contacts with similar symptoms, tick bite, or known CO2 exposure. Yes all other systems are reviewed and are negative COUNTS INCLUDE 234 BEDS AT THE [facility] Past Medical History Attestation statement: The following information was validated with the patient. Source: old records reviewed and nursing notes reviewed Medical History Patient denies medical problems Social History Social History Advance Directives: No Physical Exam Vital Signs: Vital Signs: Last Vital Signs Temp 99.2 F 06/05/22 11:14 Pulse 80 06/05/22 11:14 Resp 16 06/05/22 11:14 BP 132/81 06/05/22 11:14 Pulse Ox 97 06/05/22 11:14 O2 Del Method 06/05/22 11:14 BMI result Body Mass Index 34.9 vital signs have been reviewed as normal and appeared to be correct. Blood pressure normal. Heart rate normal. Respiration rate normal. Temperature normal. Oxygen saturation normal. Appearance: Alert. Oriented X3. No acute distress. Head: Normal external exam. Normocephalic. Atraumatic. No Jordan signs noted. No raccoon eyes noted Eyes: PERRLA. EOMI. Conjunctiva are normal. Cornea are normal. Funduscopic exam within normal limits. Sclera normal. Eyelids normal. No papilledema noted. Anterior chamber normal. No photophobia noted. ENT: EAC normal. TM's Normal. Pharynx normal. Uvula midline. Moist mucous membranes. Neck: Normal inspection. Neck supple. FROM. No adenopathy. Thyroid Normal. No meningeal signs. No neck mass noted. CVS: Normal heart rate and rhythm. Heart sound normal. No murmurs noted. Pulses normal throughout. Respiratory: No respiratory distress. Painless inspiration. Breath sounds normal. Back: Full range of motion noted. Skin: Skin warm and dry. Normal skin color. Normal skin turgor. No rashes/lesions/lacerations noted. Extremities: No lower extremity edema. Extremities exhibit normal range of motion. Extremities nontender. Neuro: Oriented X 3. No motor deficit. No sensory deficit. Reflexes normal. Course Course Course Narrative: On exam before fluorescein staining and tetracaine funduscopic exam is normal. Although patient does have a left corneal abrasion. No foreign bodies are noted. Not consistent with periorbital cellulitis. Not consistent with rust ring. Not consistent with bacterial conjunctivitis at this time. Therefore patient placed in eye patch and erythromycin place and instructions follow-up with mail rider and to return if any new or worsening symptoms. Patient understands agrees with this plan. Medications Administered Discontinued Medications Generic Name Dose Route Start Last Admin Trade Name Freq PRN Reason Stop Dose Admin Fluorescein Sodium 1 strip 06/05/22 11:16 06/05/22 11:38 Fluorescein Sodium Strip EYE-LEFT 06/05/22 11:17 1 strip ONCE ONE Administration Tetracaine HCl 1 drop 06/05/22 11:16 06/05/22 11:38 Tetracaine Hcl/Pf 0.5% Oph Mary 4 Ml Drops EYE-LEFT 06/05/22 11:17 1 drop ONCE ONE Administration Medical Decision Making External Record Review External record reviewed: Inpatient record, Office record, Outpatient record, Prior outpatient labs, Prior outpatient radiology, Primary care record and Outside ED record I reviewed all patient's prior history in our record. Discharge Plan Discharge Clinical Impression: Corneal abrasion, left Patient Disposition: Home, Self-Care Instructions: Corneal Abrasion (ED) Prescriptions: New erythromycin 5 mg/gram (0.5 %) ointment 0.5 inch ophthalmic (eye) QID 7 Days Qty: 3.5 0RF ketorolac 0.5 % drops 1 drp ophthalmic (eye) QID 14 Days Qty: 10 0RF No Action doxycycline hyclate 100 mg capsule 100 mg PO BID 10 Days Qty: 20 0RF epinephrine [EpiPen 2-Sameer] 0.3 mg/0.3 mL auto-injector 0.3 mg IM Q4H PRN (Reason: anaphylaxis) Qty: 2 0RF erythromycin 5 mg/gram (0.5 %) ointment 0.5 inch ophthalmic (eye) Q4H Qty: 3.5 0RF erythromycin 5 mg/gram (0.5 %) ointment 1 appl ophthalmic (eye) BID Qty: 3.5 0RF ibuprofen 600 mg tablet 600 mg PO Q6H PRN (Reason: pain) Qty: 30 0RF Referrals: Gulshan Jean Baptiste [Physician] - (Call to make a follow-up appointment) Stand Alone Forms: Work/School Release
[2022-06-05] MEDS: Erythromycin Base 0.5% Oph Oin 1 GM TUBE 1 CM EYE-LEFT (11:48)
== END 2022-06-05 11:48 | disposition home or self-care (01) ==
PROVIDERS: Emergency Provider Emergency Medicine
DX: S05.02XA Injury of conjunctiva and corneal abrasion without foreign body, left eye, initial encounter (principal); X58.XXXA Exposure to other specified factors, initial encounter; Y93.9 Activity, unspecified; Y92.9 Unspecified place or not applicable; Y99.9 Unspecified external cause status; Z79.899 Other long term (current) drug therapy
CPT/HCPCS: 99282; 99283

== ENCOUNTER 2022-08-30 11:10 | Outpatient (REF) | payer OTHER, SELFPAY ==
[2022-08-30 11:27] LABS: MANUAL DIFF FLAG NO
[2022-08-30 12:07] LABS: Basophils Absolute Auto 0.1 X10*3/uL (0.0-0.2); Basophils Percent Auto 0.9 % (0-2); Eosinophils Absolute Auto 0.2 X10*3/uL (0.0-0.4); Eosinophils Percent Auto 2.4 % (0-4); Hematocrit 42.3 % (42.0-52.0); Hemoglobin 14.4 g/dl (14.0-18.0); Imm Gran Abs Auto 0.03 X10*3/uL (0.00-0.03); Imm Gran Pct Auto 0.4 % (0.0-0.4); Lymphocytes Absolute Auto 1.7 X10*3/uL (1.2-4.9); Mean Corpuscular Hemoglobin 29.9 pg (27.0-33.0); Mean Corpuscular Volume 87.9 fL (80.0-98.0); Mean Platelet Volume 10.8 fL (9.4-12.4); Monocytes Absolute Auto 0.7 X10*3/uL (0.1-1.2); Monocytes Percent Auto 10.2 % (2-11); Neutrophils Absolute Auto 4.3 x10*3/uL (2.0-8.3); Neutrophils Percent Auto 61.1 % (45-73); Platelet Count 249 X10*3/uL (160-400); Red Blood Count 4.81 X10*6/uL (4.60-5.80); Red Cell Distribution Width 12.6 % (11.0-16.0)
[2022-08-30 12:59] LABS: Alanine Aminotransferase 90 U/L (0-40); Albumin Level 4.3 g/dL (3.5-5.0); Alkaline Phosphatase 69 U/L (39-117); Anion Gap 9 (12-20); Aspartate Amino Transferase 44 U/L (5-37); Bilirubin Total 0.8 mg/dL (0.0-1.0); Blood Urea Nitrogen 16 mg/dL (9-16); Calcium 9.6 mg/dL (8.4-10.2); Carbon Dioxide 28 mmol/L (22-29); Chloride 107 mmol/L (96-108); Cholesterol 255 mg/dL; Estimated Glomerular Filt Rate > 60; Glucose Fasting 97 mg/dL (60-99); HDL Cholesterol 49 mg/dL; LDL Cholesterol Calculated 158 mg/dl; Potassium 4.4 mmol/L (3.3-5.1); Sodium 140 mmol/L (135-145); Triglycerides 243 mg/dL
[2022-08-30 13:18] LABS: TSH reflex Free T4 2.38 uIU/mL (0.32-4.0); Vitamin D 25-OH Total 16.1 ng/mL (>30)
[2022-08-30 13:49] LABS: Appearance Urine Clear; Color Urine Yellow; Glucose Urine UA Negative (Negative); Leukocyte Esterase Urine Negative (Negative); Nitrite Urine Negative (Negative); PH 5.5 (5.0-9.0); Specific Gravity - Urine 1.025 (1.005-1.025); Urine Blood Negative (Negative); Urine Ketones Negative (Negative); Urine Protein Negative (Neg-Trace)
== END 2022-08-30 11:11 | disposition home or self-care (01) ==
LOC: HO.LAB 11:10
PROVIDERS: PCP Internal Medicine; Visit Provider Internal Medicine
DX: Z00.00 Encounter for general adult medical examination without abnormal findings (principal); R10.13 Epigastric pain; R30.0 Dysuria; E55.9 Vitamin D deficiency, unspecified; E78.00 Pure hypercholesterolemia, unspecified
CPT/HCPCS: 36415; 80053; 80061; 81003; 82306; 84443; 85025

== ENCOUNTER 2022-11-18 10:05 | Outpatient (REF) | payer OTHER, SELFPAY ==
--- NOTE | ~2022-11-18 | FL_ITS ---
EXAMINATION: XR GI SERIES CLINICAL INFORMATION: Epigastric pain COMPARISON: None available. TECHNIQUE: Upper GI was performed using thin and thick barium and effervescent granules. FINDINGS: Esophageal motility is normal. There is a small sliding-type hiatal hernia. There is mild gastroesophageal reflux. There is fold thickening of the stomach. There are multiple ulcers seen in the distal stomach. The duodenum is normal. FLUOROSCOPY TIME: 0.7 minutes DOSE AREA PRODUCT: 7.8 Morel per centimeter squared. 25 saved fluoroscopic images. FL/FL upper GI series IMPRESSION: Fold thickening of the stomach probably representing gastritis and multiple ulcers in the distal stomach. Endoscopic correlation should be considered. Small sliding-type hiatal hernia and mild gastroesophageal reflux.
== END 2022-11-18 10:06 | disposition home or self-care (01) ==
LOC: HO.XRAY 10:05
PROVIDERS: PCP Internal Medicine; Visit Provider Internal Medicine
DX: R10.13 Epigastric pain (principal)
CPT/HCPCS: 74240

== ENCOUNTER → 2022-11-18 10:06 | Outpatient (BNV) | payer OTHER, SELFPAY | PROVIDERS: PCP Internal Medicine; Visit Provider Radiology Diagnostic Radiology | DX: R10.13 Epigastric pain (principal) | CPT/HCPCS: 74246 ==

== ENCOUNTER 2022-12-06 14:44 | Outpatient (AMB) | payer OTHER, SELFPAY ==
[2022-12-06 14:45] VITALS: BP 110/78; PULSE 65; O2SAT 96; BMI 35.9
--- NOTE | 2022-12-06 14:45 | A.OFFPC_ITS ---
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: No Accompanied by: Self / Same As Patient Allergies bee pollen [bee stings] Allergy (Verified 12/06/22 14:59) Anaphylaxis SEASONAL ALLERGIES Allergy (Unknown, Uncoded 12/06/22 14:59) stuff nose/eyes irrtation Medication List - Last Reconciled 12/06/22 by Kashmir Gunter MD omeprazole 20 mg PO DAILY 30 days Tobacco use date assessed: 12/06/22 Dental Screening Dental Screen Date: 12/06/22 Did you have a dental visit in the last 12 months?: No Did you have a dental problem in the last 6 months where you did not have access to dental care?: No Was dental information given to patient?: No HPI 3 month f/u HPI Details Patient comes in today for his follow up visit States that he continues to experience recurrent abdominal pain and that the Omeprazole Rx that we started him on a few months ago helps but only slightly He denies any nausea/vomiting lately Denies any chest pains, no SOB Had his upper GI series done a couple of weeks ago and recalls being advised that he has some stomach ulcers States that he has stopped drinking alcohol completely since Would also like to know how he did on his labs done a few months ago [facility] Medical History (Updated 12/06/22 @ 15:33 by Kashmir Gunter MD) Anxiety Mixed hyperlipidemia Multiple gastric ulcers Obesity (BMI 30-39.9) Post traumatic stress disorder (PTSD) Smoker Vitamin D deficiency Surgical History No pertinent past surgical history Family History Maternal Aunt Mental health disorder Family/Other Mental health disorder Other Heart failure Substance use disorder Social History Housing: Apartment Alcohol intake: current Alcohol intake frequency: holidays/special occasions only Patient Tobacco Use Status: Current someday Tobacco user Tobacco use type: Cigarette and Cigar Cigarettes Per Day: 3 e-Cigarette/Vaping Use: Former Use Second Hand Smoke Exposure: No service: No Current occupational status: employed 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 1. Little interest or pleasure in doing things: not at all 2. Feeling down, depressed, or hopeless: not at all 3. Trouble falling or staying asleep, or sleeping too much: not at all 4. Feeling tired or having little energy: not at all 5. Poor appetite or overeating: not at all 6. Feeling bad about yourself - or that you are a failure or have let yourself or your family down: not at all 7. Trouble concentrating on things, such as reading the newspaper or watching television: not at all 8. Moving or speaking so slowly that other people could have noticed. Or the opposite - being so fidgety or restless that you have been moving around a lot more than usual: not at all 9. Thoughts that you would be better off or of hurting yourself in some way: not at all Total score: 0 Depression Screening Interpretation: Negative 72516 - PHQ-9 Billing: Yes Source: Developed by Drs. Paolo Adorno, Litzy Valadez, Chucho Koenig and colleagues, with an educational tyrese from [employer]. Thrive Questionnaire Date Thrive assessed: 12/06/22 I am a: Patient What is your living situation today?: I have a steady place to live Within the past 12 months, did the food you bought not last and you didn't have the money to get more?: Never true Within the past 12 months, did you worry whether your food would run out before you got money to buy more?: Never true Do you have trouble paying for medicines?: No Do you have trouble getting transportation to medical appointments?: No Do you have trouble paying your heating and electricity bill?: No Do you have trouble taking care of your child, family member or friend?: No Do you have trouble with day-to-day activities such as bathing, preparing meals, shopping, managing finances, etc.?: No Are you currently unemployed and looking for a job?: No Are you interested in more education?: No Please select the resources that you would like help with: None Currently or been in a relationship where the following occur: no concerns reported AUDIT C Alcohol Use Questionnaire (AUDIT-C) 1. How often do you have a drink containing alcohol?: Monthly or less (used to drink regularly/heavily but now only socially / occasionally) 2. How many drinks containing alcohol do you have on a typical day when you are drinking?: 1 or 2 3. How often do you have six or more drinks on one occasion?: Never Total Score: 1 Score Reviewed/Action Taken: Yes KEVEN-7 AMB Questionnaire KEVEN-7 Date KEVEN - 7 assessed: 12/06/22 Feeling nervous, anxious, or on edge: 1 = Several days Not being able to stop or control worryin = Not at all Worrying too much about different things: 0 = Not at all Trouble relaxin = Not at all Being so restless that it is hard to sit still: 0 = Not at all Becoming easily annoyed or irritable: 0 = Not at all Feeling afraid as if something awful might happen: 0 = Not at all Total KEVEN-7 score (0-4 normal; 5-9 mild; 10-14 moderate; 15-21 severe): 1 Source: Developed by Drs. Paolo Adorno, Litzy Valadez, Chucho Koenig and colleagues, with an educational tyrese from [employer]. Review of Systems Const Denies fatigue, Denies fever(s) and Denies headache(s) ENT Denies dysphagia, Denies dizziness, Denies headache(s), Denies neck pain, Denies odynophagia and Denies sore throat Card Denies chest pain, Denies rapid heart rate, Denies irregular heart rhythm, Denies palpitations and Denies dyspnea Resp Denies chest congestion, Denies cough, Denies dyspnea and Denies wheezing GI Reports abdominal pain (epigastric ), Denies constipation, Denies dysphagia, Reports heartburn (at times), Denies diarrhea, Denies nausea, Denies odynophagia and Denies vomiting Denies dysuria and Denies urinary frequency Musc Denies back pain, Denies arthralgias and Denies neck pain Skin/Breast Denies rash Neuro Denies dizziness, Denies headache(s) and Denies paresthesias Endo Denies fatigue and Denies palpitations Aller/Immun Denies wheezing Physical exam (Primary Care) Vital Signs: Last Vital Signs Pulse 65 12/06/22 14:45 BP 110/78 12/06/22 14:45 Pulse Ox 96 12/06/22 14:45 Oxygen Delivery Method Room Air 12/06/22 14:45 BMI result Body Mass Index 35.9 Tobacco/Smoking Status: Tobacco use Status Tobacco use date assessed 12/06/22 12/06/22 14:50 Patient Tobacco Use Status Current someday Tobacco 12/06/22 14:50 Tobacco use type Cigarette,Cigar 12/06/22 14:50 e-Cigarette/Vaping Use Former Use 12/06/22 14:50 PHQ-9: PHQ-9 Score PHQ-9: Total score 0 12/06/22 14:50 Depression Screening Interpretation: Negative Thrive Assessment: Date of Thrive Assessment Date Thrive assessed 12/06/22 12/06/22 14:50 Currently or been in a relationship where the following occur: no concerns reported Const General: no acute distress and alert HENMT Ears: TM's normal bilaterally and EAC's normal Throat: Yes posterior oropharynx normal and Yes tonsils normal (no TP congestion) Neck Neck: Yes no lymphadenopathy and Yes supple Thyroid: Thyroid normal Resp Auscultation: clear to auscultation bilaterally, no rales and no wheezes Cardio Rate: regular rate Rhythm: regular rhythm Heart sounds: no murmurs GI Palpation (GI): Soft to palpation, Tenderness to palpation present (GI) in the epigastrum, no guarding, not rigid and No Rebound tenderness present Auscultation: normal bowel sounds General: Yes no CVA tenderness Back/Spine/Pelvis Back: no CVA tenderness Skin Rashes: no rashes Extrem General: Yes no clubbing, cyanosis or edema Results Reviewed Results Reviewed: Laboratory Tests 08/30/22 08/30/22 08/30/22 11:24 11:25 11:25 WBC 7.0 Hgb 14.4 Hct 42.3 Plt Count 249 Sodium 140 Potassium 4.4 Creatinine 1.09 Fasting Glucose 97 Calcium 9.6 AST 44 H ALT 90 H Triglycerides 243 Cholesterol 255 LDL Cholesterol, Calc 158 HDL Cholesterol 49 25-OH Vitamin D Total 16.1 TSH 2.38 Ur Specific [place] 1.025 Urine Protein Negative Urine Glucose (UA) Negative Urine Blood Negative Assessment and Plan Assessment & Plan (1) Multiple gastric ulcers: Code(s): K25.9 - Gastric ulcer, unspecified as acute or chronic, without hemorrhage or perforation Plan: Result of his upper GI series done a couple of weeks ago revealed findings suggestive of gastritis and multiple ulcers in the distal stomach, as well as a small sliding hiatal hernia and mild GERD Reinforced dietary restrictions and complete avoidance of alcohol - patient states that he has already stopped drinking a couple of weeks ago Will increase his Omeprazole for now to 40 mg QD Will also refer him to GI [facility] for further evaluation and management - patient is advised that he will most likely require EGD for further evaluation (2) Elevated LFTs: Code(s): R79.89 - Other specified abnormal findings of blood chemistry Plan: Advised that his LFTs were high/elevated on his labs done a few months ago, likely due to the effects of alcohol Patient states that he has stopped drinking completely a couple of weeks ago when he learned that he has multiple gastric ulcers seen on his recent upper GI series Will have him recheck his LFTs as well in 4 months for follow up (3) Mixed hyperlipidemia: Code(s): E78.2 - Mixed hyperlipidemia Plan: Results of her labs done back in August 2022 reviewed and discussed with patient - advised that her cholesterol levels (total cholesterol, triglycerides and LD cholesterol) were all elevated Discussed low cholesterol diet for now Will recheck his fasting lipids in 4 months for follow up (4) Vitamin D deficiency: Code(s): E55.9 - Vitamin D deficiency, unspecified Plan: Will start him on Vitamin D3 2000 units QD - advised that his Vitamin D level was low on his recent labs (5) Smoker: Code(s): F17.200 - Nicotine dependence, unspecified, uncomplicated Plan: Counseled again on smoking cessation (6) Obesity (BMI 30-39.9): Code(s): E66.9 - Obesity, unspecified Plan: Reinforced diet/exercise as tolerated/lose weight Plan Follow up in 4 months Orders: Orders Complete Blood Count Auto Diff 4 Months I10 - Essential (primary) hypertension Comprehensive [place]. Panel Fast 4 Months E78.00 - Pure hypercholesterolemia, unspecified Lipid Panel 4 Months E78.00 - Pure hypercholesterolemia, unspecified UA CC w/rflx Micro + Cult 4 Months R30.0 - Dysuria Vitamin D 25-OH Total 4 Months E55.9 - Vitamin D deficiency, unspecified Referrals Gastroenterology Referral K25.9 - Gastric ulcer, unspecified as acute or chronic, without hemorrhage or perforation Medications: New cholecalciferol (vitamin D3) 50 mcg PO DAILY 90 days 90 caps 3RF E55.9 - Vitamin D deficiency, unspecified Changed From omeprazole 20 mg PO DAILY 30 days 30 caps 3RF K25.9 - Gastric ulcer, unspecified as acute or chronic, without hemorrhage or perforation To omeprazole 40 mg PO DAILY 30 days 30 caps 3RF K25.9 - Gastric ulcer, unspecified as acute or chronic, without hemorrhage or perforation Coding Level of Care Code Est Pt Level 4 (57165) Diagnoses Multiple gastric ulcers K25.9 Elevated LFTs R79.89 Mixed hyperlipidemia E78.2 Vitamin D deficiency E55.9 Smoker F17.200 Obesity (BMI 30-39.9) E66.9
== END 2022-12-06 15:14 | disposition home or self-care (01) ==
PROVIDERS: PCP Internal Medicine; Visit Provider Internal Medicine
DX: K25.9 Gastric ulcer, unspecified as acute or chronic, without hemorrhage or perforation (principal); E55.9 Vitamin D deficiency, unspecified; F17.210 Nicotine dependence, cigarettes, uncomplicated; R79.89 Other specified abnormal findings of blood chemistry; E78.2 Mixed hyperlipidemia; E66.9 Obesity, unspecified
CPT/HCPCS: 99214

== ENCOUNTER 2022-12-18 13:25 | Outpatient (AMB) | payer OTHER, SELFPAY ==
--- NOTE | 2022-12-18 13:26 | A.OFFVIS_ITS ---
Intake Vital Signs 12/18/22 13:29 Height 5 ft 6.5 in Weight 227 lb 1.218 oz BMI 36.1 BP 120/73 Blood Pressure Location Lt brachial Position Sitting Pulse 78 Intake Visit Reasons: Gastric Ulcer Intake Note: Kendall presents in the office as a new patient for a Gastric Ulcer. CC: He states that he is having abdominal pains - gastritis. He has a lot of acid reflux symptoms. When he eats he gets bloated in his throat - he has a hiatal hernia. Multiple ulcers and a sliding hiatal hernia into the esophagus. Tax Assistant Required: No Allergies bee pollen [bee stings] Allergy (Verified 12/18/22 13:30) Anaphylaxis SEASONAL ALLERGIES Allergy (Unknown, Uncoded 12/18/22 13:30) stuff nose/eyes irrtation HPI HPI Comments History of Present Illness Details 26 y.o M with etOH use disorder, HLD, wh o is here for an abnormal upper GI series. Reports having sensation of food getting stuck for almost a year now. Has also developed abdominal pain that has been gradually worse. Onset was almost a couple of years however did not seek medical attention until recently. Recalls a remote hx of seeing black stools a year ago but attributed to drinking too much red wine. Does have hx of heavy etOH use x 7 years - consuming up to a pint a day of whiskey or binge drink a case of beer in a day. Cut down a few months ago to a few beers few times a day. Also used to smoke half a pack a day, cut down to 2-3 cigarettes a day. No NSAIDs. PFSH Medical History Anxiety Mixed hyperlipidemia Multiple gastric ulcers Obesity (BMI 30-39.9) Post traumatic stress disorder (PTSD) Smoker Vitamin D deficiency Surgical History No pertinent past surgical history Family History Maternal Aunt Mental health disorder Family/Other Mental health disorder Other Heart failure Substance use disorder Social History Housing: Apartment Alcohol intake: current Alcohol intake frequency: holidays/special occasions only Patient Tobacco Use Status: Current someday Tobacco user Tobacco use type: Cigarette and Cigar Cigarettes Per Day: 3 e-Cigarette/Vaping Use: Former Use Second Hand Smoke Exposure: No service: No Current occupational status: employed 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 Cognitive needs: No Hearing needs: No Vision needs: Yes (glasses) Review of Systems Const All systems reviewed & are unremarkable except as noted in HPI and below Physical Exam Vital Signs: Last Vital Signs Pulse 78 12/18/22 13:29 BP 120/73 12/18/22 13:29 BMI result Body Mass Index 36.1 Gen appear: NAD HEENT: nonicteric, no cervical lymphadenopathy Chest: CTA CVS: Regular S1/S2 Abd: soft, nontender, nondistended, bowel sounds + Ext: no peripheral edema Neuro: A/Ox3, noted to move all extremities spontaneously Psych: interacting appropriately Results Reviewed Results Reviewed: UGIS: Fold thickening of the stomach probably representing gastritis and multiple ulcers in the distal stomach. Endoscopic correlation should be considered. Small sliding-type hiatal hernia and mild gastroesophageal reflux. Assessment & Plan Assessment & Plan (1) Multiple gastric ulcers: Code(s): K25.9 - Gastric ulcer, unspecified as acute or chronic, without hemorrhage or perforation (2) Epigastric pain: Code(s): R10.13 - Epigastric pain (3) Smoker: Code(s): F17.200 - Nicotine dependence, unspecified, uncomplicated (4) Alcohol abuse: Code(s): F10.10 - Alcohol abuse, uncomplicated Plan Risk factors likely smoking and etOH. Will also check for H pylori once off PPI. Will need endoscopic evaluation which we will set up after 8 weeks of uninterrupted high dose PPI therapy to allow for ulcer healing. Follow up after EGD. Coding Level of Care Code New Pt Level 4 (46501) Diagnoses Multiple gastric ulcers K25.9 Epigastric pain R10.13 Smoker F17.200 Alcohol abuse F10.10
[2022-12-18 13:29] VITALS: BP 120/73; PULSE 78; BMI 36.1
== END 2022-12-18 15:15 | disposition home or self-care (01) ==
PROVIDERS: PCP Internal Medicine; Visit Provider Internal Medicine
DX: K25.9 Gastric ulcer, unspecified as acute or chronic, without hemorrhage or perforation (principal); R10.13 Epigastric pain; F17.200 Nicotine dependence, unspecified, uncomplicated; F10.10 Alcohol abuse, uncomplicated
CPT/HCPCS: 99204

== ENCOUNTER → 2022-12-18 13:25 | Outpatient (BNVA) | payer OTHER, SELFPAY | PROVIDERS: PCP Internal Medicine; Visit Provider Internal Medicine ==

== ENCOUNTER 2023-02-11 12:31 | Day surgery (SDC) | payer OTHER, SELFPAY ==
[2023-02-06 19:43] VITALS: BMI 36.0
[2023-02-07 06:50] VITALS: BMI 35.5
--- NOTE | 2023-02-10 09:18 | HO.ANESPROP2 ---
Documented by User: Yoltete Martinez NP 02/10/23 09:20 HPI - Anesthesia Eval Consult details Narrative: 27yo M for Upper Endoscopy PMFSH Active Problems Active Problems: All Active Problems (Updated 02/06/23 @ 19:53 by Flory Clement RN) Alcohol abuse (Acute) Elevated LFTs (Acute) Epigastric pain (Acute) Annual physical exam (Acute) Vitamin D deficiency (Acute) Mixed hyperlipidemia (Acute) Multiple gastric ulcers (Acute) Smoker (Acute) Obesity (BMI 30-39.9) (Acute) Past Medical History Medical History Boil Vitamin D deficiency Mixed hyperlipidemia Multiple gastric ulcers Post traumatic stress disorder (PTSD) Anxiety Obesity (BMI 30-39.9) Smoker Family History Family History Maternal Aunt Mental health disorder Family/Other Mental health disorder Other Heart failure Substance use disorder Surgical History Surgical History No pertinent past surgical history Social History Social History Housing: Apartment Alcohol intake: current Alcohol intake frequency: former alcohol drinker Patient Tobacco Use Status: Former Tobacco user Quit Date: 3 weeks ago Tobacco use type: Cigarette Cigarettes Per Day: 3 e-Cigarette/Vaping Use: Former Use Second Hand Smoke Exposure: No Use of substances other than those prescribed or required for medical reasons: No Are you DNR?: No Advance Directives: No Advance Directives Information Provided: Yes Advance Directives on File: No Recently lost weight without trying: No Nutrition Risks: No Nutritional Risk service: No Current occupational status: employed 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 Cognitive needs: No Hearing needs: No Vision needs: Yes (glasses) Meds Allergies Allergy/AdvReac Type Severity Reaction Status Date / Time bee pollen [bee stings] Allergy Anaphylaxis Verified 02/11/23 13:02 SEASONAL ALLERGIES Allergy Unknown stuff Uncoded 02/11/23 13:02 nose/eyes irrtation Exam Exam Date and Time: February 10, 2023 0918 Height,Weight and Vital Signs: Height 5 ft 7 in Weight 102.965 kg Pertinent Lab Results Pertinent Lab Results: Laboratory Tests 08/30/22 11:25 WBC 7.0 Hgb 14.4 Hct 42.3 Plt Count 249 Sodium 140 Potassium 4.4 Chloride 107 Carbon Dioxide 28 BUN 16 Creatinine 1.09 Assessment and Plan Assessment Anesthesia Assessment: Chart Reviewed Documented by User: Nick Fuentes MD 02/11/23 13:27 PMF Past Medical History Medical History Boil Vitamin D deficiency Mixed hyperlipidemia Multiple gastric ulcers Post traumatic stress disorder (PTSD) Anxiety Obesity (BMI 30-39.9) Smoker Family History Family History Maternal Aunt Mental health disorder Family/Other Mental health disorder Other Heart failure Substance use disorder Family history of problems with anesthesia: No Surgical History Surgical History No pertinent past surgical history History of Problems with Anesthesia: No Social History Social History Housing: Apartment Alcohol intake: current Alcohol intake frequency: former alcohol drinker Patient Tobacco Use Status: Former Tobacco user Quit Date: 3 weeks ago Tobacco use type: Cigarette Cigarettes Per Day: 3 e-Cigarette/Vaping Use: Former Use Second Hand Smoke Exposure: No Use of substances other than those prescribed or required for medical reasons: No Are you DNR?: No Advance Directives: No Advance Directives Information Provided: Yes Advance Directives on File: No Recently lost weight without trying: No Nutrition Risks: No Nutritional Risk service: No Current occupational status: employed 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 Cognitive needs: No Hearing needs: No Vision needs: Yes (glasses) Meds Allergies Allergy/AdvReac Type Severity Reaction Status Date / Time bee pollen [bee stings] Allergy Anaphylaxis Verified 02/11/23 13:02 SEASONAL ALLERGIES Allergy Unknown stuff Uncoded 02/11/23 13:02 nose/eyes irrtation Exam Airway Mallampati Class: II TM Dist: >3cm Neck ROM: Full Assessment and Plan Assessment Anesthesia Assessment: Anesthesia Plan Discussed Final Anesthetic Review Family History of Problems with Anesthesia: No History of Problems with Anesthesia: No NPO: Yes ASA Class: II Final Preanesthetic Review: No Changes in Pt Med Stat, Meds/Allgs Chart Reviewed, Consent Obtained/Reviewed and Anes Risks/Benef Reviewed Patient Risk: Intermediate Procedure Risk: Low Anesthetic Plan Anesthetic Plan: MAC: Disposition: Standard PACU
[2023-02-11 12:56] VITALS: BMI 36.0
[2023-02-11] MEDS: Lactated Ringers 1,000 ML 100 ML IVCONT (13:15)
[2023-02-11 13:17] VITALS: BP 136/79; PULSE 60; RESP 16; TEMP 36.7; O2SAT 97
--- NOTE | 2023-02-11 13:34 | MHC.SHP ---
Pre-Procedural Eval Section A Date of Service: 02/11/23 Section B Chief Complaint: Gastric ulcer, unspecified as acute or chronic Details of Present Illness: PMH: Anxiety Mixed hyperlipidemia Multiple gastric ulcers Obesity (BMI 30-39.9) Post traumatic stress disorder (PTSD) Smoker Vitamin D deficiency Relevant Family History (Specify if Yes): No Relevant Social History: Alcohol Use Present Medications: see Short Stay Collaborative assessment Allergies: Allergies Allergy/AdvReac Type Severity Reaction Status Date / Time bee pollen [bee stings] Allergy Anaphylaxis Verified 02/11/23 13:02 SEASONAL ALLERGIES Allergy Unknown stuff Uncoded 02/11/23 13:02 nose/eyes irrtation Review of Systems Review of Systems Comment: Ten point ROS negative Exam Exam Comment: Gen appear: No acute distress HEENT: no icterus Chest: No overt resp distress Abd: soft, nontender, nondistended Psych: Stable affect, answering questions appropriately Neuro: A/Ox3 noted to move all extremities spontaneously Ext: no peripheral edema Plan Diagnosis/Plan: Unchanged I have reviewed the history and physical and performed a pertinent physical examination on my patient. No changes have occurred unless specified. Time Spent With Patient Time: Total time managing care of this patient today ____ minutes.
--- NOTE | 2023-02-11 14:27 | P.OP_ITS ---
Operative Note Operative Note Date of Service: 02/11/23 Narrative: Procedure: Esophagogastroduodenoscopy Endoscopist: Makayla Contreras MD Indication: Gastric ulcers Anesthesia Provider: Alivia Hunter CRNA Anesthesia Type: MAC ?? EGD Procedure:?? The procedure, indications, preparation and potential complications were reviewed with the patient, who indicated understanding and gave written informed consent to proceed. A physical exam was performed. The endoscope was introduced through the mouth, and advanced to the second part of duodenum. The mucosa was carefully examined on slow withdrawal of the endoscope. The patient tolerated the procedure well. There were no immediate complications.? ? EGD Findings:? * Esophagus:? Normal mucosa noted in the entire esophagus. The Z line was at 37 cm. Middle and lower esophagus forceps biopsies were obtained to rule out eosinophilic esophagitis. * Stomach:? Normal mucosa was noted in the stomach. No erosions or ulcers were noted. Random gastric biopsies were taken to rule out H Pylori infection. * Duodenum:? Normal mucosa was noted in the whole of the examined duodenum. ? EGD Impressions:? * Normal esophagus (biopsy) * Normal stomach (biopsy) * Normal duodenum ?? Recommendations:?? * Follow biopsy results. Our office will call or send a letter with results within 7-10 days. * Complete 8 weeks of PPI and then can discontinue * If H pylori +, patient will be prescribed eradication therapy followed by test of cure. * Avoid NSAIDs, smoking and heavy etOH use. Above has been reviewed with the patient.
[2023-02-11 14:59] VITALS: BP 120/75; PULSE 80; RESP 16; TEMP 36.1; O2SAT 96
[2023-02-11 15:14] VITALS: BP 117/78; PULSE 70; RESP 20; TEMP 36.3; O2SAT 96
== END 2023-02-11 15:35 | disposition home or self-care (01) ==
PROVIDERS: PCP Internal Medicine; Visit Provider Internal Medicine
PROC: 0DJ08ZZ Inspection of Upper Intestinal Tract, Via Natural or Artificial Opening Endoscopic (ICD-10-PCS; CPT 43235; principal; 2023-02-11 14:20)
DX: K25.9 Gastric ulcer, unspecified as acute or chronic, without hemorrhage or perforation (principal); K44.9 Diaphragmatic hernia without obstruction or gangrene; E78.2 Mixed hyperlipidemia; E55.9 Vitamin D deficiency, unspecified; J30.2 Other seasonal allergic rhinitis; E66.9 Obesity, unspecified; Z68.36 Body mass index [BMI] 36.0-36.9, adult; F41.9 Anxiety disorder, unspecified; F43.10 Post-traumatic stress disorder, unspecified; F17.210 Nicotine dependence, cigarettes, uncomplicated; F10.90 Alcohol use, unspecified, uncomplicated
CPT/HCPCS: 43239; 88305; 88342; J2250; J3010

== ENCOUNTER → 2023-02-11 12:31 | Outpatient (BNV) | payer OTHER, SELFPAY | PROVIDERS: PCP Internal Medicine; Visit Provider Internal Medicine | DX: K25.9 Gastric ulcer, unspecified as acute or chronic, without hemorrhage or perforation (principal) | CPT/HCPCS: 43239 ==

== ENCOUNTER 2023-04-09 14:13 | Outpatient (AMB) | payer OTHER, SELFPAY ==
--- NOTE | 2023-04-09 14:34 | MHC.PC.OV ---
Vital Signs 04/09/23 14:35 Height 5 ft 7 in Weight 224 lb 6 oz BMI 35.1 BP 96/58 L Blood Pressure Location Lt brachial Position Sitting Pulse 60 Pulse Source Pulse Oximeter Pulse Oximetry (%) 97 Oxygen Delivery Method Room Air Intake Visit Reasons: gastric ulcers Intake Note: Patient is here today for gastric ulcers. Endoscopy results. Requesting a referral for eye Rolls Baker Required: No Plumber'S Helper: Not Required per policy Accompanied by: Self / Same As Patient Allergies bee pollen [bee stings] Allergy (Verified 04/09/23 15:19) Anaphylaxis SEASONAL ALLERGIES Allergy (Unknown, Uncoded 04/09/23 15:19) stuff nose/eyes irrtation Medication List - Last Reconciled 04/09/23 by Kashmir Gunter MD omeprazole 40 mg PO DAILY 30 days Tobacco use date assessed: 04/09/23 Dental Screening Dental Screen Date: 04/09/23 Did you have a dental visit in the last 12 months?: Yes Did you have a dental problem in the last 6 months where you did not have access to dental care?: No Was dental information given to patient?: Patient has dentist HPI gastric ulcers HPI Details Patient comes in today for his follow up visit States that he feels well and that all of his GI symptoms have improved significantly over the past couple of months and he no longer has any abdominal pains, nausea or vomiting for a few weeks now EGD done a couple of months ago mostly came out normal; H. pylori test was also negative He denies any headaches or dizziness Denies any chest pains, no SOB No change in bowel habits noted Would like to get his flu shot today PFSH Medical History Boil Vitamin D deficiency Mixed hyperlipidemia Multiple gastric ulcers Post traumatic stress disorder (PTSD) Anxiety Obesity (BMI 30-39.9) Smoker Surgical History History of endoscopy Family History Maternal Aunt Mental health disorder Family/Other Mental health disorder Other Heart failure Substance use disorder Social History Housing: Apartment Alcohol intake: current Alcohol intake frequency: former alcohol drinker Patient Tobacco Use Status: Former Tobacco user Quit Date: 3 weeks ago Tobacco use type: Cigarette Cigarettes Per Day: 3 e-Cigarette/Vaping Use: Former Use Second Hand Smoke Exposure: No service: No Current occupational status: employed 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 Paolo Adorno, Litzy Valadez, Chucho Koenig and colleagues, with an educational tyrese from [employer]. Review of Systems Const Denies fatigue, Denies fever(s) and Denies headache(s) ENT Denies dysphagia, Denies dizziness, Denies otalgia, Denies headache(s), Denies neck pain, Denies odynophagia and Denies sore throat Card Denies chest pain, Denies palpitations and Denies dyspnea Resp Denies cough and Denies dyspnea GI Denies abdominal pain, Denies constipation, Denies dysphagia, Denies heartburn, Denies diarrhea, Denies nausea, Denies odynophagia and Denies vomiting Denies dysuria and Denies nocturia Musc Denies neck pain Neuro Denies dizziness and Denies headache(s) Endo Denies fatigue and Denies palpitations Physical exam (Primary Care) Vital Signs: Last Vital Signs Pulse 60 04/09/23 14:35 BP 96/58 L 04/09/23 14:35 Pulse Ox 97 04/09/23 14:35 Oxygen Delivery Method Room Air 04/09/23 14:35 BMI result Body Mass Index 35.1 Tobacco/Smoking Status: Tobacco use Status Tobacco use date assessed 04/09/23 04/09/23 14:42 Patient Tobacco Use Status Former Tobacco user 04/09/23 14:42 Tobacco use type Cigarette 04/09/23 14:42 e-Cigarette/Vaping Use Former Use 04/09/23 14:42 Thrive Assessment: Date of Thrive Assessment Date Thrive assessed 12/06/22 04/09/23 14:42 Const General: no acute distress and alert Neck Neck: Yes no lymphadenopathy and Yes supple Resp Auscultation: clear to auscultation bilaterally, no rales and no wheezes Cardio Rate: regular rate Rhythm: regular rhythm Heart sounds: no murmurs GI Palpation (GI): Soft to palpation, nontender and No hepatosplenomegaly present Extrem General: Yes no clubbing, cyanosis or edema Office Procedures Flu Questionnaire Does the patient have a severe egg allergy?: No Does the patient have severe life threatening allergies?: No Does the patient have a fever or illness today?: No Has the patient ever had Guillain-[place] Syndrome?: No Has the patient ever had any past reaction to a flu shot?: No Immunizations flu vacc [id number] 6mos up(PF) 60 mcg(15 mcgx4)/0.5 mL IM syringe Performing Provider: Kashmir Gunter MD [facility] Administered by: JUSTINA Briggs on 04/09/23 14:48 Dose Route Admin Location Dispensed Lot Number Expiration Date NDC Oven [employer]orer 0.5 mL IM Left Deltoid 0.5 mL [id number] 10/12/23 12059-940-82 [employer] VIS Given Date VIS Provided VIS Publication Date 04/09/23 Single Vaccine 20 Eligibility Eligibility Date Funding Source Not VFC Eligible 04/09/23 Private Assessment and Plan Assessment & Plan (1) Multiple gastric ulcers: Code(s): K25.9 - Gastric ulcer, unspecified as acute or chronic, without hemorrhage or perforation Plan: Upper GI series done a couple of months ago revealed findings of gastritis and multiple ulcers in the distal stomach, as well as a small sliding hiatal hernia and mild GERD H. pylori test came out negative Reinforced dietary restrictions and complete avoidance of alcohol Continue Omeprazole 40 mg QD - was advised to continue PPI x 2 months, then can D/C if symptoms have completely resolved Follow up with GI as scheduled (2) Elevated LFTs: Code(s): R79.89 - Other specified abnormal findings of blood chemistry Plan: He is reminded that his LFTs were high/elevated on his labs done back in August 2022, likely due to the effects of alcohol Patient reportedly has stopped drinking completely several months ago after learning that he has multiple gastric ulcers seen on his upper GI series Will have him recheck his LFTs as well in 6 months for follow up (3) Mixed hyperlipidemia: Code(s): E78.2 - Mixed hyperlipidemia Plan: Reinforced low cholesterol diet for now Will recheck his fasting lipids in 6 months for follow up (4) Vitamin D deficiency: Code(s): E55.9 - Vitamin D deficiency, unspecified Plan: Continue Vitamin D3 2000 units QD (5) Smoker: Code(s): F17.200 - Nicotine dependence, unspecified, uncomplicated Plan: Counseled again on smoking cessation (6) Obesity (BMI 30-39.9): Code(s): E66.9 - Obesity, unspecified Plan: Reinforced diet/exercise as tolerated/lose weight Plan Flu vaccine given today To return in 6 months for his annual physical examination Orders: Orders Complete Blood Count Auto Diff 09/17/23 Z00.00 - Encounter for general adult medical examination without abnormal findings, K25.9 - Gastric ulcer, unspecified as acute or chronic, without hemorrhage or perforation Comprehensive [place]. Panel Fast 09/17/23 E78.00 - Pure hypercholesterolemia, unspecified, Z00.00 - Encounter for general adult medical examination without abnormal findings, K25.9 - Gastric ulcer, unspecified as acute or chronic, without hemorrhage or perforation Vitamin D 25-OH Total 09/17/23 E55.9 - Vitamin D deficiency, unspecified, Z00.00 - Encounter for general adult medical examination without abnormal findings, K25.9 - Gastric ulcer, unspecified as acute or chronic, without hemorrhage or perforation Influenza [id number] Immunization 04/09/23 Z23 - Encounter for immunization Lipid Panel 09/17/23 E78.00 - Pure hypercholesterolemia, unspecified, Z00.00 - Encounter for general adult medical examination without abnormal findings, K25.9 - Gastric ulcer, unspecified as acute or chronic, without hemorrhage or perforation TSH reflex Free T4 09/17/23 E78.00 - Pure hypercholesterolemia, unspecified, Z00.00 - Encounter for general adult medical examination without abnormal findings, K25.9 - Gastric ulcer, unspecified as acute or chronic, without hemorrhage or perforation UA CC w/rflx Micro + Cult 09/17/23 R30.0 - Dysuria, Z00.00 - Encounter for general adult medical examination without abnormal findings, K25.9 - Gastric ulcer, unspecified as acute or chronic, without hemorrhage or perforation Coding Level of Care Code Est Pt Level 3 (83948) Diagnoses Multiple gastric ulcers K25.9 Elevated LFTs R79.89 Mixed hyperlipidemia E78.2 Vitamin D deficiency E55.9 Smoker F17.200 Obesity (BMI 30-39.9) E66.9
[2023-04-09 14:35] VITALS: BP 96/58; PULSE 60; O2SAT 97; BMI 35.1
== END 2023-04-09 15:24 | disposition home or self-care (01) ==
PROVIDERS: PCP Internal Medicine; Visit Provider Internal Medicine
DX: Z23 Encounter for immunization (principal)
CPT/HCPCS: 90471; 90686; 99213

== ENCOUNTER 2023-09-24 13:37 | Outpatient (AMB) | payer OTHER, SELFPAY ==
[2023-09-24 13:37] VITALS: BP 122/76; PULSE 86; O2SAT 96; BMI 35.2
--- NOTE | 2023-09-24 13:37 | A.OFFPC_ITS ---
Vital Signs 09/24/23 13:37 Height 5 ft 7 in Weight 225 lb 0.4 oz BMI 35.2 BP 122/76 Blood Pressure Location Lt brachial Position Sitting Pulse 86 Pulse Source Pulse Oximeter Pulse Oximetry (%) 96 Oxygen Delivery Method Room Air Intake Visit Reasons: PE Intake Note: Patient is here today for a physical. Oncology Nurse Navigator Required: No Allergies bee pollen [bee stings] Allergy (Verified 09/24/23 14:23) Anaphylaxis SEASONAL ALLERGIES Allergy (Unknown, Uncoded 09/24/23 14:23) stuff nose/eyes irrtation Medication List - Last Reconciled 09/24/23 by Kashmir Gunter MD omeprazole 40 mg PO DAILY 30 days Tobacco use date assessed: 09/24/23 Dental Screening Dental Screen Date: 09/24/23 Did you have a dental visit in the last 12 months?: No Did you have a dental problem in the last 6 months where you did not have access to dental care?: No HPI PE HPI Details Patient comes in today for his annual physical examination States that he feels okay He denies any headaches or dizziness Denies any chest pains, no SOB No nausea/vomiting, no abdominal pain No change in bowel habits noted He denies any acute urinary symptoms He was not able to get his follow up labs done prior to his appointment today [facility] Medical History Vitamin D deficiency Mixed hyperlipidemia Multiple gastric ulcers Post traumatic stress disorder (PTSD) Anxiety Obesity (BMI 30-39.9) Smoker Surgical History History of endoscopy Family History Maternal Aunt Mental health disorder Family/Other Mental health disorder Other Heart failure Substance use disorder Social History Housing: Apartment Alcohol intake: current Alcohol intake frequency: former alcohol drinker Patient Tobacco Use Status: Former Tobacco user Tobacco use type: Cigarette Cigarettes Per Day: 3 e-Cigarette/Vaping Use: Former Use Second Hand Smoke Exposure: No service: No Current occupational status: employed 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 1. Little interest or pleasure in doing things: not at all 2. Feeling down, depressed, or hopeless: not at all 3. Trouble falling or staying asleep, or sleeping too much: not at all 4. Feeling tired or having little energy: not at all 5. Poor appetite or overeating: not at all 6. Feeling bad about yourself - or that you are a failure or have let yourself or your family down: not at all 7. Trouble concentrating on things, such as reading the newspaper or watching television: not at all 8. Moving or speaking so slowly that other people could have noticed. Or the o pposite - being so fidgety or restless that you have been moving around a lot more than usual: not at all 9. Thoughts that you would be better off or of hurting yourself in some way: not at all Total score: 0 Depression Screening Interpretation: Negative Depression Screening Done: Yes 22172 - PHQ-9 Billing: Yes Source: Developed by Drs. Paolo Adorno, Litzy Valadez, Chucho Koenig and colleagues, with an educational tyrese from [employer]. Thrive Questionnaire Date Thrive assessed: 09/24/23 I am a: Patient What is your living situation today?: I have a steady place to live Within the past 12 months, did the food you bought not last and you didn't have the money to get more?: Never true Within the past 12 months, did you worry whether your food would run out before you got money to buy more?: Never true Do you have trouble paying for medicines?: No Do you have trouble getting transportation to medical appointments?: No Do you have trouble paying your heating and electricity bill?: No Do you have trouble taking care of your child, family member or friend?: No Do you have trouble with day-to-day activities such as bathing, preparing meals, shopping, managing finances, etc.?: No Are you currently unemployed and looking for a job?: No Are you interested in more education?: No Please select the resources that you would like help with: None Currently or been in a relationship where the following occur: no concerns reported THRIVE Score: 0 AUDIT C Alcohol Use Questionnaire (AUDIT-C) 1. How often do you have a drink containing alcohol?: Monthly or less (used to drink regularly/heavily but now only socially / occasionally) 2. How many drinks containing alcohol do you have on a typical day when you are drinking?: 1 or 2 3. How often do you have six or more drinks on one occasion?: Never Total Score: 1 Score Reviewed/Action Taken: Yes KEVEN-7 AMB Questionnaire KEVEN-7 Date KEVEN - 7 assessed: 09/24/23 Feeling nervous, anxious, or on edge: 0 = Not at all Not being able to stop or control worryin = Not at all Worrying too much about different things: 0 = Not at all Trouble relaxin = Not at all Being so restless that it is hard to sit still: 0 = Not at all Becoming easily annoyed or irritable: 0 = Not at all Feeling afraid as if something awful might happen: 0 = Not at all Total KEVEN-7 score (0-4 normal; 5-9 mild; 10-14 moderate; 15-21 severe): 0 Source: Developed by Drs. Paolo Adorno, Litzy Valadez, Chucho Koenig and colleagues, with an educational tyrese from [employer]. KEVEN-7 Assessment Billing KEVEN-7 Assessment Tool: KEVEN-7 Assessment 73193 Review of Systems Const Denies chills, Denies fatigue, Denies fever(s), Denies headache(s), Denies malaise and Denies weakness Eyes Denies blurry vision, Denies change in vision, Denies irritation and Denies itchy eyes ENT Denies dysphagia, Denies dizziness, Denies otalgia, Denies headache(s), Denies nasal congestion, Denies neck pain, Denies odynophagia and Denies sore throat Card Denies chest pain, Denies rapid heart rate, Denies irregular heart rhythm, Denies palpitations and Denies dyspnea Resp Denies chest congestion, Denies cough, Denies dyspnea and Denies wheezing GI Denies abdominal pain, Denies bloating, Denies constipation, Denies dysphagia, Denies heartburn, Denies diarrhea, Denies nausea, Denies odynophagia and Denies vomiting Denies hematuria, Denies difficulty urinating, Denies dysuria, Denies urinary frequency and Denies urinary urgency Musc Denies back pain, Denies arthralgias, Denies joint swelling, Denies muscle weakness and Denies neck pain Skin/Breast Denies change in pigmentation, Denies lesions, Denies rash and Denies unusual bruising Neuro Denies dizziness, Denies headache(s), Denies paresthesias and Denies weakness Endo Denies fatigue and Denies palpitations Aller/Immun Denies itchy eyes and Denies wheezing Physical exam (Primary Care) Vital Signs: Last Vital Signs Pulse 86 09/24/23 13:37 BP 122/76 09/24/23 13:37 Pulse Ox 96 09/24/23 13:37 Oxygen Delivery Method Room Air 09/24/23 13:37 BMI result Body Mass Index 35.2 Tobacco/Smoking Status: Tobacco use Status Tobacco use date assessed 09/24/23 09/24/23 13:38 Patient Tobacco Use Status Former Tobacco user 09/24/23 13:38 Tobacco use type Cigarette 09/24/23 13:38 e-Cigarette/Vaping Use Former Use 09/24/23 13:38 PHQ-9: PHQ-9 Score PHQ-9: Total score 0 09/24/23 13:50 Depression Screening Interpretation: Negative Thrive Assessment: Date of Thrive Assessment Date Thrive assessed 09/24/23 09/24/23 13:50 Currently or been in a relationship where the following occur: no concerns reported Const General: no acute distress, alert and awake Orientation/consciousness: patient oriented x3 HENMT Head: Yes normocephalic and Yes atraumatic Ears: external ears normal, TM's normal bilaterally and EAC's normal General nose exam: No nasal discharge present Face and sinus: Yes normal facial exam and Yes sinuses nontender Teeth and gingiva: dentition normal Throat: Yes posterior oropharynx normal and Yes tonsils normal (no TP congestion) Eyes Eyelids: Yes eyelids normal Conjunctivae: conjunctivae normal Pupils: Equal, round and reactive pupils present EOM: EOMs intact bilaterally Neck Neck: Yes no lymphadenopathy and Yes supple Thyroid: Thyroid normal Resp Auscultation: clear to auscultation bilaterally, no rales and no wheezes Cardio Rate: regular rate Rhythm: regular rhythm Heart sounds: no murmurs GI Palpation (GI): Soft to palpation, nontender and No hepatosplenomegaly present Auscultation: normal bowel sounds General: Yes no CVA tenderness Back/Spine/Pelvis Back: no CVA tenderness Thoracic/Lumbar Spine: thoracic and lumbar spine normal to inspection Skin Lesions: no lesions Rashes: no rashes Neuro General: patient oriented x3, moves all extremities, no focal motor deficits and CN's II-XI intact bilaterally Cranial nerves: Yes Equal, round and reactive pupils present Cognition (Neuro): normal cognition Gait exam (Neuro): Normal gait present Extrem General: Yes no clubbing, cyanosis or edema Assessment and Plan Assessment & Plan (1) Annual physical exam: Code(s): Z00.00 - Encounter for general adult medical examination without abnormal findings Plan: Check labs - he is advised that his orders are still in his file (orders were previously placed) and he just needs to go in one morning (fasting) and get them done AAKASH (2) Multiple gastric ulcers: Code(s): K25.9 - Gastric ulcer, unspecified as acute or chronic, without hemorrhage or perforation Plan: Upper GI series done last year (11/2022) revealed findings of gastritis and multiple ulcers in the distal stomach, as well as a small sliding hiatal hernia and mild GERD H. pylori test came out negative Reinforced dietary restrictions and complete avoidance of alcohol Continue Omeprazole 40 mg QD Follow up with GI as scheduled (3) Mixed hyperlipidemia: Code(s): E78.2 - Mixed hyperlipidemia Plan: Reinforced low cholesterol diet for now He is also reminded that his cholesterol levels were high when they were checked last year Will recheck his fasting lipids AAKASH for follow up (4) Elevated LFTs: Code(s): R79.89 - Other specified abnormal findings of blood chemistry Plan: He is reminded that his LFTs were high/elevated on his labs done back in August 2022, likely due to the effects of alcohol Patient reportedly has stopped drinking completely last year after learning that he has multiple gastric ulcers seen on his upper GI series Will have him recheck his LFTs for follow up (5) Vitamin D deficiency: Code(s): E55.9 - Vitamin D deficiency, unspecified Plan: Continue Vitamin D3 2000 units QD (6) Smoker: Code(s): F17.200 - Nicotine dependence, unspecified, uncomplicated Plan: Counseled again on smoking cessation (7) Obesity (BMI 30-39.9): Code(s): E66.9 - Obesity, unspecified Plan: Reinforced diet/exercise as tolerated/lose weight Plan To return in 1 year for his next annual physical examination Orders: Orders TSH reflex Free T4 1 Year E78.00 - Pure hypercholesterolemia, unspecified, Z00.00 - Encounter for general adult medical examination without abnormal findings Vitamin D 25-OH Total 1 Year E55.9 - Vitamin D deficiency, unspecified, Z00.00 - Encounter for general adult medical examination without abnormal findings Complete Blood Count Auto Diff 1 Year D64.9 - Anemia, unspecified, Z00.00 - Encounter for general adult medical examination without abnormal findings Comprehensive [place]. Panel Fast 1 Year E78.00 - Pure hypercholesterolemia, unspecified, Z00.00 - Encounter for general adult medical examination without abnormal findings Lipid Panel 1 Year E78.00 - Pure hypercholesterolemia, unspecified, Z00.00 - Encounter for general adult medical examination without abnormal findings UA CC w/rflx Micro + Cult 1 Year R30.0 - Dysuria, Z00.00 - Encounter for general adult medical examination without abnormal findings Coding Level of Care Code Est Pt Prev Care 18-39y([id number]) Diagnoses Annual physical exam Z00.00 Multiple gastric ulcers K25.9 Mixed hyperlipidemia E78.2 Elevated LFTs R79.89 Vitamin D deficiency E55.9 Smoker F17.200 Obesity (BMI 30-39.9) E66.9 Additional Codes KEVEN-7 Assessment Billing - KEVEN-7 Assessment Tool: KEVEN-7 Assessment [id number] ([id number])
== END 2023-09-24 14:30 | disposition home or self-care (01) ==
PROVIDERS: PCP Internal Medicine; Visit Provider Internal Medicine
DX: Z00.00 Encounter for general adult medical examination without abnormal findings (principal); E66.9 Obesity, unspecified; Z68.35 Body mass index [BMI] 35.0-35.9, adult; K25.9 Gastric ulcer, unspecified as acute or chronic, without hemorrhage or perforation; E78.2 Mixed hyperlipidemia; R79.89 Other specified abnormal findings of blood chemistry; E55.9 Vitamin D deficiency, unspecified; F17.210 Nicotine dependence, cigarettes, uncomplicated
CPT/HCPCS: 99395

== ENCOUNTER 2024-08-24 19:13 | Emergency (ER) | payer OTHER, SELFPAY ==
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
[2024-08-24 19:28] VITALS: BP 127/72; PULSE 94; RESP 16; TEMP 36.1; O2SAT 100; BMI 27.4
[2024-08-24 22:34] VITALS: BP 117/81; PULSE 73; RESP 16; O2SAT 100
[2024-08-25 00:05] VITALS: BP 127/85; PULSE 65; RESP 16; TEMP 36.6; O2SAT 97
[2024-08-25 00:41] VITALS: BP 127/85; PULSE 65; RESP 16; TEMP 36.6; O2SAT 97
== END 2024-08-25 00:42 | disposition home or self-care (01) ==
PROVIDERS: Emergency Provider Emergency Medicine; PCP Internal Medicine
DX: Z04.1 Encounter for examination and observation following transport accident (principal); R51.9 Headache, unspecified; Z87.891 Personal history of nicotine dependence
CPT/HCPCS: 70450; 72125; 99283; 99284

== ENCOUNTER → 2024-08-24 23:03 | Outpatient (BNV) | payer OTHER, SELFPAY | PROVIDERS: Emergency Provider Emergency Medicine; PCP Internal Medicine; Visit Provider General Practice | DX: G89.11 Acute pain due to trauma (principal); S09.90XA Unspecified injury of head, initial encounter | CPT/HCPCS: 70450; 72125 ==